=== PATIENT | male | born 1950 | race Caucasian/White ===

== ENCOUNTER 2016-09-10 23:15 | Inpatient (IN) | payer OTHER ==
[~2016-09-10] VITALS: Ht 172.7 cm; Wt 100.0 kg
[2016-09-11] MEDS ORDERED: SODIUM CHLORIDE 0.9% 1,000 ML IV ONE (02:11)
[2016-09-11 02:49] LABS: Urine Bilirubin Negative (Negative); Urine Blood TRACE /uL (Negative); Urine Color Yellow (Yellow); Urine Hyaline Cast FEW /lpf (0 - 2); Urine Ketone Negative (Negative); Urine Nitrite Negative (Negative); Urine RBC 3 /hpf (0 - 3); Urine Squamous Epithelial Cell FEW /hpf (<5); Urine Urobilinogen Normal (Negative)
[2016-09-11 02:50] LABS: Urine Glucose 4+ mg/dL (Normal)
[2016-09-11 03:20] LABS: Basophils # (auto) 0.2 uL; Basophils % (auto) 1.5 % (0.0-2.0); DEFINITIVE VIEW TRANSMISSION; Eosinophils # (auto) 0 uL; Eosinophils % (auto) 0.1 % (0.0-7.0); Hematocrit 50.5 % (41.0-53.0); Hemoglobin 16.6 g/dL (13.5-17.5); Lymphocytes # (auto) 2.7 uL; Mean Corpuscular Hgb Conc. 32.8 g/dL (32.0-36.0); Mean Corpuscular Volume 82.3 fL (80.0-100.0); Mean Platelet Volume 9.3 fL (7.4-10.4); Monocytes # (auto) 0.6 uL; Monocytes % (auto) 4.9 % (0.0-12.0); Neutrophils # (auto) 8.3 uL; Neutrophils % (auto) 70.5 % (37.0-80.0); Platelet Count (auto) 222 10^3/uL (140-450); Red Cell Distribution Width 14.2 % (11.6-16.0); White Blood Cell 11.8 10^3/uL (4.4-10.8)
[2016-09-11 03:35] LABS: INR 1.04 (0.9-1.15); Partial Thromboplastin Time 23.2 sec (22.64-33.71); Prothrombin Time 10.7 sec (9.37-12.3)
[2016-09-11 03:36] LABS: Albumin 1.7 g/dL (3.4-5.0); Anion Gap 10 (5-15); Aspartate Aminotransferase 39 U/L (15-37); BUN/Creatinine Ratio 31.1; Blood Urea Nitrogen 56 mg/dL (7-18); Calcium 10.1 mg/dL (8.5-10.1); Carbon Dioxide 25 mmol/L (21-32); Chloride 103 mmol/L (98-107); GFR African American 49 mL/min; GFR Non-African American 41 mL/min; Glucose 348 mg/dL (74-106); Potassium 4.8 mmol/L (3.5-5.1); Sodium 138 mmol/L (136-145)
[2016-09-11 03:39] LABS: Alkaline Phosphatase 116 U/L (45-117); Bilirubin, Total 0.3 mg/dL (0.2-1.0)
[2016-09-11 04:09] LABS: Temperature: 20.5 C (20.0-25.0)
[2016-09-11] MEDS ORDERED: cloNIDine HCL 0.1 MG TAB PO ONE (08:30)
[2016-09-11] MEDS ORDERED: FUROSEMIDE 20 MG/2 ML VIAL IV ONE (08:30)
[2016-09-11] MEDS ORDERED: NITROGLYCERIN 0.4 MG SL TAB SL PRN (10:15)
[2016-09-11] MEDS ORDERED: LISINOPRIL 10 MG TAB PO ONE (10:15)
[2016-09-11] MEDS ORDERED: HYDROcodone-ACET 5/325MG TAB PO PRN (10:15)
[2016-09-11] MEDS ORDERED: MORPHINE SULF INJ 2 MG/ML SYRINGE 1ML IV PRN ×2 (10:15)
[2016-09-11] MEDS ORDERED: cloNIDine HCL 0.1 MG TAB PO PRN (10:15)
[2016-09-11] MEDS ORDERED: cefTRIAXone 1GM/50ML D5W 50 ML IV ONE (10:15)
[2016-09-11] MEDS ORDERED: ONDANSETRON HCL 4 MG/2 ML VIAL IV PRN (10:15)
[2016-09-11] MEDS ORDERED: ACETAMINOPHEN 325 MG TAB PO PRN (10:15)
[2016-09-11] MEDS: metFORMIN HYDROCHLORIDE 500 MG TAB PO ONE ×2 (10:15→10:42)
[2016-09-11] MEDS ORDERED: DEXTROSE (50%) 50ML SYRG IV PRN (10:15)
[2016-09-11] MEDS ORDERED: TEMAZEPAM 15 MG CAP PO PRN (10:15)
[2016-09-11] MEDS ORDERED: FAMOTIDINE 20 MG TAB PO ONE (10:30)
[2016-09-11] MEDS ORDERED: MULTIPLE VITAMIN TAB PO ONE (10:30)
[2016-09-11] MEDS: SODIUM CHLORIDE 0.9% 1,000 ML IV SCH ×2 (10:34→12:06)
[2016-09-11 10:45] LABS: Amylase 42 U/L (25-115)
[2016-09-11] MEDS ORDERED: ASPirin-EC 81 mg tab PO ONE (10:45)
[2016-09-11] MEDS: Boost Glucose Control 8 Ounces PO SCH ×3 (12:06→22:00)
[2016-09-11] MEDS: InsuLIN REG 1unit/0.01ml Soln (100units/ml) SC SCH ×3 (12:14→22:00)
[2016-09-11] MEDS: ACCU-CHEK COMFORT CURVE STRIP VI SCH ×3 (12:14→22:00)
[2016-09-11] MEDS: metFORMIN HYDROCHLORIDE 500 MG TAB PO SCH (18:15)
[2016-09-11] MEDS: ATORVASTATIN 20 MG TAB PO SCH (22:00)
[2016-09-11] MEDS ORDERED: FAMOTIDINE 20 MG TAB PO SCH (22:00)
[2016-09-11] MEDS: ENOXAPARIN SOD 100 MG/1 ML SYRINGE SC SCH (22:00)
[2016-09-12] MEDS: SODIUM CHLORIDE 0.9% 1,000 ML IV SCH ×2 (02:54→11:21)
[2016-09-12 03:54] LABS: Basophils # (auto) 0.1 uL; Basophils % (auto) 0.7 % (0.0-2.0); Eosinophils # (auto) 0.2 uL; Eosinophils % (auto) 1.7 % (0.0-7.0); Hematocrit 45.1 % (41.0-53.0); Hemoglobin 14.6 g/dL (13.5-17.5); Lymphocytes # (auto) 3.2 uL; Lymphocytes % (auto) 29.7 % (10.0-50.0); Mean Corpuscular Hemoglobin 27.1 pg (28.0-32.0); Mean Corpuscular Hgb Conc. 32.3 g/dL (32.0-36.0); Mean Corpuscular Volume 83.8 fL (80.0-100.0); Mean Platelet Volume 9.1 fL (7.4-10.4); Monocytes # (auto) 0.7 uL; Neutrophils # (auto) 6.5 uL; Neutrophils % (auto) 60.9 % (37.0-80.0); Platelet Count (auto) 217 10^3/uL (140-450); Red Cell Distribution Width 14.8 % (11.6-16.0); White Blood Cell 10.7 10^3/uL (4.4-10.8)
[2016-09-12 04:12] LABS: Albumin 1.4 g/dL (3.4-5.0); Calcium 8.8 mg/dL (8.5-10.1); Potassium 3.8 mmol/L (3.5-5.1)
[2016-09-12 04:15] LABS: Bilirubin, Total 0.2 mg/dL (0.2-1.0); Total Protein 5.1 g/dL (6.4-8.2)
[2016-09-12] MEDS: Boost Glucose Control 8 Ounces PO SCH ×4 (06:00→21:56)
[2016-09-12] MEDS: metFORMIN HYDROCHLORIDE 500 MG TAB PO SCH (07:00)
[2016-09-12] MEDS: ACCU-CHEK COMFORT CURVE STRIP VI SCH ×4 (07:40→21:56)
[2016-09-12] MEDS: InsuLIN REG 1unit/0.01ml Soln (100units/ml) SC SCH ×4 (07:55→21:56)
[2016-09-12] MEDS ORDERED: cefTRIAXone 1GM/50ML D5W 50 ML IV SCH (09:00)
[2016-09-12] MEDS ORDERED: LISINOPRIL 10 MG TAB PO SCH (10:00)
[2016-09-12] MEDS: ENOXAPARIN SOD 100 MG/1 ML SYRINGE SC SCH (10:26)
[2016-09-12] MEDS: ASPirin-EC 81 mg tab PO SCH (10:27)
[2016-09-12] MEDS: FAMOTIDINE 20 MG TAB PO SCH (10:27)
[2016-09-12] MEDS: MULTIPLE VITAMIN TAB PO SCH (10:27)
[2016-09-12] MEDS ORDERED: TRIA75TA55 PO (10:50)
[2016-09-12] MEDS ORDERED: SIMV40TA96 PO (10:50)
[2016-09-12] MEDS ORDERED: METF-489 PO (10:50)
[2016-09-12] MEDS ORDERED: LISI-646 PO (10:50)
[2016-09-12] MEDS: hydrALAZINE HCL 20 MG/ML VL IV PRN ×2 (11:25→17:47)
[2016-09-12 15:09] VITALS: BP 194/107
[2016-09-12 17:27] VITALS: BP 170/90
[2016-09-12 18:33] VITALS: BP 148/89
[2016-09-12] MEDS: ATORVASTATIN 20 MG TAB PO SCH (21:56)
[2016-09-12 22:04] VITALS: BP 102/60
[2016-09-12 22:07] VITALS: BP 152/85
[2016-09-13 04:53] VITALS: BP 136/78
[2016-09-13] MEDS: Boost Glucose Control 8 Ounces PO SCH ×4 (05:29→22:19)
[2016-09-13] MEDS: ACCU-CHEK COMFORT CURVE STRIP VI SCH ×4 (05:57→22:00)
[2016-09-13] MEDS: InsuLIN REG 1unit/0.01ml Soln (100units/ml) SC SCH ×4 (05:59→22:46)
[2016-09-13 08:30] VITALS: BP 145/83
[2016-09-13] MEDS ORDERED: LISINOPRIL 20 MG TAB PO SCH (10:00)
[2016-09-13] MEDS ORDERED: TRIAMTERENE/HCTZ 75/50MG TABLET PO SCH (10:00)
[2016-09-13] MEDS ORDERED: LISINOPRIL 10 MG TAB PO SCH (10:00)
[2016-09-13] MEDS: ENOXAPARIN SOD 40 MG/0.4 ML SYRINGE SC SCH (10:38)
[2016-09-13] MEDS: MULTIPLE VITAMIN TAB PO SCH (10:39)
[2016-09-13] MEDS: ASPirin-EC 81 mg tab PO SCH (10:39)
[2016-09-13] MEDS: FAMOTIDINE 20 MG TAB PO SCH (10:39)
[2016-09-13] MEDS: LISINOPRIL 10 MG TAB PO SCH ×2 (10:40→22:19)
[2016-09-13] MEDS: DOCUSATE SOD 100 MG CAP PO PRN (10:40)
[2016-09-13 13:00] VITALS: BP 171/98
[2016-09-13] MEDS: SODIUM CHLORIDE 0.9% 1,000 ML IV SCH (14:30)
[2016-09-13 16:52] VITALS: BP 169/87
[2016-09-13] MEDS: hydrALAZINE HCL 20 MG/ML VL IV PRN (17:04)
[2016-09-13 21:42] VITALS: BP 136/79
[2016-09-13] MEDS: ATORVASTATIN 20 MG TAB PO SCH (22:18)
[2016-09-14 04:41] VITALS: BP 125/70
[2016-09-14] MEDS: Boost Glucose Control 8 Ounces PO SCH ×4 (05:28→21:19)
[2016-09-14] MEDS: SODIUM CHLORIDE 0.9% 1,000 ML IV SCH (05:30)
[2016-09-14] MEDS: ACCU-CHEK COMFORT CURVE STRIP VI SCH ×4 (06:25→21:46)
[2016-09-14] MEDS: InsuLIN REG 1unit/0.01ml Soln (100units/ml) SC SCH ×4 (06:33→21:39)
[2016-09-14 08:20] LABS: BUN/Creatinine Ratio 29.3; Calcium 8.6 mg/dL (8.5-10.1); Potassium 3.7 mmol/L (3.5-5.1)
[2016-09-14 09:00] VITALS: BP 150/80
[2016-09-14] MEDS: ENOXAPARIN SOD 40 MG/0.4 ML SYRINGE SC SCH (09:36)
[2016-09-14] MEDS: DOCUSATE SOD 100 MG CAP PO PRN (09:36)
[2016-09-14] MEDS: ASPirin-EC 81 mg tab PO SCH (09:36)
[2016-09-14] MEDS: FAMOTIDINE 20 MG TAB PO SCH (09:36)
[2016-09-14] MEDS: MULTIPLE VITAMIN TAB PO SCH (09:37)
[2016-09-14] MEDS: LISINOPRIL 10 MG TAB PO SCH ×2 (09:37→21:46)
[2016-09-14 13:00] VITALS: BP 152/80
[2016-09-14 16:00] VITALS: BP 165/95
[2016-09-14] MEDS: ATORVASTATIN 20 MG TAB PO SCH (21:45)
[2016-09-14 22:00] VITALS: BP 187/99
[2016-09-14] MEDS ORDERED: INSULIN DETEMIR(LEVEMIR) 1unit/0.01ml Soln (100units/ml) SC SCH (22:00)
[2016-09-15 03:06] VITALS: BP 187/99
[2016-09-15] MEDS: hydrALAZINE HCL 20 MG/ML VL IV PRN (04:42)
[2016-09-15] MEDS: Boost Glucose Control 8 Ounces PO SCH ×4 (05:12→22:02)
[2016-09-15 05:45] VITALS: BP 164/88
[2016-09-15] MEDS: ACCU-CHEK COMFORT CURVE STRIP VI SCH ×4 (06:00→22:02)
[2016-09-15] MEDS: InsuLIN REG 1unit/0.01ml Soln (100units/ml) SC SCH ×4 (06:41→22:30)
[2016-09-15 07:33] LABS: BUN/Creatinine Ratio 30.2; Calcium 8.4 mg/dL (8.5-10.1); Magnesium 2.5 mg/dL (1.6-2.6); Potassium 3.8 mmol/L (3.5-5.1)
[2016-09-15] MEDS: FAMOTIDINE 20 MG TAB PO SCH (09:20)
[2016-09-15] MEDS: MULTIPLE VITAMIN TAB PO SCH (09:20)
[2016-09-15] MEDS: ENOXAPARIN SOD 40 MG/0.4 ML SYRINGE SC SCH (09:20)
[2016-09-15] MEDS: LISINOPRIL 10 MG TAB PO SCH ×2 (09:21→21:37)
[2016-09-15] MEDS: ASPirin-EC 81 mg tab PO SCH (09:21)
[2016-09-15 09:31] VITALS: BP 158/92
[2016-09-15] MEDS ORDERED: HCTZ 25 MG TAB PO ONE (11:00)
[2016-09-15] MEDS ORDERED: NICOTINE 21MG/24 HR TOPICAL PATCH TD ONE (11:15)
[2016-09-15 13:00] VITALS: BP 142/80
[2016-09-15 16:45] VITALS: BP 169/85
[2016-09-15] MEDS: ATORVASTATIN 20 MG TAB PO SCH (21:37)
[2016-09-15 22:00] VITALS: BP 164/87
[2016-09-15] MEDS: INSULIN DETEMIR(LEVEMIR) 1unit/0.01ml Soln (100units/ml) SC SCH (22:30)
[2016-09-16 05:00] VITALS: BP 143/98
[2016-09-16] MEDS: Boost Glucose Control 8 Ounces PO SCH ×4 (05:38→22:04)
[2016-09-16] MEDS: ACCU-CHEK COMFORT CURVE STRIP VI SCH ×3 (06:23→22:17)
[2016-09-16 06:41] LABS: BUN/Creatinine Ratio 29.8; Calcium 8.2 mg/dL (8.5-10.1); Potassium 3.5 mmol/L (3.5-5.1)
[2016-09-16] MEDS: InsuLIN REG 1unit/0.01ml Soln (100units/ml) SC SCH ×3 (07:00→22:17)
[2016-09-16 08:40] VITALS: BP 164/94
[2016-09-16] MEDS: ASPirin-EC 81 mg tab PO SCH (09:27)
[2016-09-16] MEDS: NICOTINE 21MG/24 HR TOPICAL PATCH TD SCH (09:27)
[2016-09-16] MEDS: ENOXAPARIN SOD 40 MG/0.4 ML SYRINGE SC SCH (09:27)
[2016-09-16] MEDS: FAMOTIDINE 20 MG TAB PO SCH (09:27)
[2016-09-16] MEDS: MULTIPLE VITAMIN TAB PO SCH (09:28)
[2016-09-16] MEDS: HCTZ 25 MG TAB PO SCH (09:28)
[2016-09-16] MEDS: LISINOPRIL 10 MG TAB PO SCH ×2 (09:29→22:03)
[2016-09-16] MEDS ORDERED: ASP81EC PO (11:54)
[2016-09-16] MEDS ORDERED: LISI10TA6 PO (11:54)
[2016-09-16] MEDS ORDERED: ATOR20TA50 PO (11:54)
[2016-09-16] MEDS ORDERED: LEVEMIR SC (11:54)
[2016-09-16] MEDS ORDERED: MET25T PO (11:54)
[2016-09-16] MEDS ORDERED: PANT40TA2 PO (11:54)
[2016-09-16] MEDS ORDERED: HCTZ25T PO (11:54)
[2016-09-16] MEDS ORDERED: DEXTROSE (50%) 50ML SYRG IV PRN (12:00)
[2016-09-16] MEDS ORDERED: METOPROLOL TARTRATE 25 MG TAB PO ONE (12:00)
[2016-09-16 13:00] VITALS: BP 174/95
[2016-09-16 17:26] VITALS: BP 146/86
[2016-09-16 21:13] VITALS: BP 151/88
[2016-09-16] MEDS: ATORVASTATIN 20 MG TAB PO SCH (22:02)
[2016-09-16] MEDS: METOPROLOL TARTRATE 25 MG TAB PO SCH (22:04)
[2016-09-16] MEDS: INSULIN DETEMIR(LEVEMIR) 1unit/0.01ml Soln (100units/ml) SC SCH (22:17)
[2016-09-17] MEDS: hydrALAZINE HCL 20 MG/ML VL IV PRN (04:55)
[2016-09-17 04:57] VITALS: BP 163/92
[2016-09-17] MEDS: Boost Glucose Control 8 Ounces PO SCH ×4 (05:37→21:50)
[2016-09-17] MEDS: ACCU-CHEK COMFORT CURVE STRIP VI SCH ×4 (06:27→21:50)
[2016-09-17] MEDS: InsuLIN REG 1unit/0.01ml Soln (100units/ml) SC SCH ×4 (06:30→22:13)
[2016-09-17] MEDS: DOCUSATE SOD 100 MG CAP PO PRN (06:32)
[2016-09-17 09:00] VITALS: BP 124/71
[2016-09-17] MEDS: NICOTINE 21MG/24 HR TOPICAL PATCH TD SCH (09:33)
[2016-09-17] MEDS: MULTIPLE VITAMIN TAB PO SCH (09:34)
[2016-09-17] MEDS: PANTOPRAZOLE 40 MG TAB PO SCH (09:34)
[2016-09-17] MEDS: ASPirin-EC 81 mg tab PO SCH (09:34)
[2016-09-17] MEDS: HCTZ 25 MG TAB PO SCH (09:34)
[2016-09-17] MEDS: LISINOPRIL 10 MG TAB PO SCH ×2 (09:35→21:49)
[2016-09-17] MEDS: METOPROLOL TARTRATE 25 MG TAB PO SCH ×2 (09:36→21:50)
[2016-09-17] MEDS: ENOXAPARIN SOD 40 MG/0.4 ML SYRINGE SC SCH (09:36)
[2016-09-17] MEDS: ALPRAZolam 0.5 MG TAB PO PRN ×2 (11:32→21:51)
[2016-09-17] MEDS: ACETAMINOPHEN 325 MG TAB PO PRN ×2 (11:32→17:25)
[2016-09-17 12:33] VITALS: BP 151/81
[2016-09-17 17:08] VITALS: BP 121/78
[2016-09-17 21:20] VITALS: BP 150/80
[2016-09-17] MEDS: ATORVASTATIN 20 MG TAB PO SCH (21:48)
[2016-09-17] MEDS: INSULIN DETEMIR(LEVEMIR) 1unit/0.01ml Soln (100units/ml) SC SCH (22:12)
[2016-09-18 05:27] VITALS: BP 127/59
[2016-09-18] MEDS: Boost Glucose Control 8 Ounces PO SCH ×4 (06:43→21:20)
[2016-09-18] MEDS: ACCU-CHEK COMFORT CURVE STRIP VI SCH ×4 (06:43→22:16)
[2016-09-18] MEDS: InsuLIN REG 1unit/0.01ml Soln (100units/ml) SC SCH ×4 (06:51→22:00)
[2016-09-18 07:07] LABS: BUN/Creatinine Ratio 34.2; Calcium 7.7 mg/dL (8.5-10.1); Potassium 3.8 mmol/L (3.5-5.1)
[2016-09-18 07:40] LABS: Basophils # (auto) 0.1 uL; Basophils % (auto) 0.6 % (0.0-2.0); Eosinophils # (auto) 0.2 uL; Eosinophils % (auto) 2.4 % (0.0-7.0); Hemoglobin 13.3 g/dL (13.5-17.5); Lymphocytes # (auto) 1.4 uL; Lymphocytes % (auto) 16.6 % (10.0-50.0); Mean Corpuscular Hemoglobin 27.7 pg (28.0-32.0); Mean Corpuscular Hgb Conc. 33.3 g/dL (32.0-36.0); Mean Platelet Volume 9.4 fL (7.4-10.4); Monocytes # (auto) 0.8 uL; Monocytes % (auto) 9.5 % (0.0-12.0); Neutrophils # (auto) 5.9 uL; Neutrophils % (auto) 70.9 % (37.0-80.0); Platelet Count (auto) 179 10^3/uL (140-450); Red Cell Distribution Width 14.1 % (11.6-16.0); White Blood Cell 8.3 10^3/uL (4.4-10.8)
[2016-09-18 09:27] VITALS: BP 144/75
[2016-09-18] MEDS: MULTIPLE VITAMIN TAB PO SCH (10:52)
[2016-09-18] MEDS: HCTZ 25 MG TAB PO SCH (10:53)
[2016-09-18] MEDS: ENOXAPARIN SOD 40 MG/0.4 ML SYRINGE SC SCH (10:53)
[2016-09-18] MEDS: ASPirin-EC 81 mg tab PO SCH (10:53)
[2016-09-18] MEDS: LISINOPRIL 10 MG TAB PO SCH ×2 (10:54→21:20)
[2016-09-18] MEDS: METOPROLOL TARTRATE 25 MG TAB PO SCH ×2 (10:54→21:19)
[2016-09-18] MEDS: NICOTINE 21MG/24 HR TOPICAL PATCH TD SCH (10:55)
[2016-09-18] MEDS: PANTOPRAZOLE 40 MG TAB PO SCH (10:55)
[2016-09-18 13:00] VITALS: BP 126/65
[2016-09-18 16:37] VITALS: BP 119/64
[2016-09-18] MEDS: ATORVASTATIN 20 MG TAB PO SCH (21:19)
[2016-09-18 22:00] VITALS: BP 140/77
[2016-09-18] MEDS: INSULIN DETEMIR(LEVEMIR) 1unit/0.01ml Soln (100units/ml) SC SCH (22:16)
[2016-09-18] MEDS: ALPRAZolam 0.5 MG TAB PO PRN (22:19)
[2016-09-19] MEDS: ACETAMINOPHEN 325 MG TAB PO PRN ×2 (00:34→15:18)
[2016-09-19] MEDS: Boost Glucose Control 8 Ounces PO SCH ×4 (04:53→21:46)
[2016-09-19 05:00] VITALS: BP 98/56
[2016-09-19] MEDS: ACCU-CHEK COMFORT CURVE STRIP VI SCH ×4 (06:08→21:46)
[2016-09-19] MEDS: InsuLIN REG 1unit/0.01ml Soln (100units/ml) SC SCH ×4 (06:08→22:02)
[2016-09-19 09:24] VITALS: BP 119/55
[2016-09-19] MEDS: HCTZ 25 MG TAB PO SCH (10:00)
[2016-09-19] MEDS: METOPROLOL TARTRATE 25 MG TAB PO SCH ×2 (10:00→21:45)
[2016-09-19] MEDS: LISINOPRIL 10 MG TAB PO SCH (10:00)
[2016-09-19] MEDS ORDERED: LIDOCAINE VISCOUS 2% 15ML UD ONE (10:39)
[2016-09-19] MEDS ORDERED: fentaNYL CITRATE 100 MCG/2 ML VL ONE (10:39)
[2016-09-19] MEDS ORDERED: MIDAZOLAM HCL 1MG/1ML-2 ML VIAL ONE (10:39)
[2016-09-19] MEDS ORDERED: FLUMAZENIL 0.1 MG/ML INJ 10ML MDV IV ONE (10:39)
[2016-09-19] MEDS ORDERED: NALOXONE HCL 0.4 MG/ML VIAL ONE (10:39)
[2016-09-19] MEDS ORDERED: LIDOCAINE VISCOUS 2% 15ML UD PO ONE (11:00)
[2016-09-19] MEDS ORDERED: fentaNYL CITRATE 100 MCG/2 ML VL IV ONE (11:00)
[2016-09-19] MEDS ORDERED: MIDAZOLAM HCL 5 MG/ML-1ML VIAL IM ONE (11:00)
[2016-09-19] MEDS: ENOXAPARIN SOD 40 MG/0.4 ML SYRINGE SC SCH (12:24)
[2016-09-19] MEDS: PANTOPRAZOLE 40 MG TAB PO SCH (12:24)
[2016-09-19] MEDS: ASPirin-EC 81 mg tab PO SCH (12:24)
[2016-09-19] MEDS: MULTIPLE VITAMIN TAB PO SCH (12:24)
[2016-09-19] MEDS: NICOTINE 21MG/24 HR TOPICAL PATCH TD SCH (12:25)
[2016-09-19 13:10] VITALS: BP 103/57
[2016-09-19] MEDS: ALPRAZolam 0.5 MG TAB PO PRN ×2 (15:18→23:41)
[2016-09-19 17:00] VITALS: BP 116/67
[2016-09-19 21:11] VITALS: BP 127/69
[2016-09-19] MEDS: ATORVASTATIN 20 MG TAB PO SCH (21:46)
[2016-09-19] MEDS: INSULIN DETEMIR(LEVEMIR) 1unit/0.01ml Soln (100units/ml) SC SCH (22:02)
[2016-09-20 05:21] VITALS: BP 120/56
[2016-09-20] MEDS: Boost Glucose Control 8 Ounces PO SCH ×4 (05:38→21:21)
[2016-09-20] MEDS: ACCU-CHEK COMFORT CURVE STRIP VI SCH ×4 (06:31→21:40)
[2016-09-20 06:32] LABS: BUN/Creatinine Ratio 34.5; Potassium 3.8 mmol/L (3.5-5.1)
[2016-09-20] MEDS: InsuLIN REG 1unit/0.01ml Soln (100units/ml) SC SCH ×4 (06:39→22:00)
[2016-09-20 09:00] VITALS: BP_SYST 125; BP_SYST 165; BP_DIAS 67; BP_DIAS 84
[2016-09-20] MEDS: PANTOPRAZOLE 40 MG TAB PO SCH (10:26)
[2016-09-20] MEDS: MULTIPLE VITAMIN TAB PO SCH (10:30)
[2016-09-20] MEDS: LISINOPRIL 10 MG TAB PO SCH (10:30)
[2016-09-20] MEDS: METOPROLOL TARTRATE 25 MG TAB PO SCH ×2 (10:32→21:40)
[2016-09-20] MEDS: HCTZ 25 MG TAB PO SCH (10:33)
[2016-09-20] MEDS: ASPirin-EC 81 mg tab PO SCH (10:33)
[2016-09-20] MEDS: ENOXAPARIN SOD 40 MG/0.4 ML SYRINGE SC SCH (10:34)
[2016-09-20] MEDS: NICOTINE 21MG/24 HR TOPICAL PATCH TD SCH (10:35)
[2016-09-20 13:00] VITALS: BP 125/67
[2016-09-20 16:36] VITALS: BP 123/71
[2016-09-20] MEDS: DOCUSATE SOD 100 MG CAP PO PRN (17:04)
[2016-09-20] MEDS: ATORVASTATIN 20 MG TAB PO SCH (21:39)
[2016-09-20 21:54] VITALS: BP 133/79
[2016-09-20] MEDS: INSULIN DETEMIR(LEVEMIR) 1unit/0.01ml Soln (100units/ml) SC SCH (22:01)
[2016-09-21] MEDS: ALPRAZolam 0.5 MG TAB PO PRN ×2 (03:36→09:33)
[2016-09-21 05:30] VITALS: BP 116/71
[2016-09-21] MEDS: Boost Glucose Control 8 Ounces PO SCH ×4 (05:58→22:00)
[2016-09-21] MEDS: ACCU-CHEK COMFORT CURVE STRIP VI SCH ×4 (06:31→22:00)
[2016-09-21] MEDS: InsuLIN REG 1unit/0.01ml Soln (100units/ml) SC SCH ×4 (06:31→22:00)
[2016-09-21 09:15] VITALS: BP 140/49
[2016-09-21] MEDS: ASPirin-EC 81 mg tab PO SCH (09:31)
[2016-09-21] MEDS: METOPROLOL TARTRATE 25 MG TAB PO SCH ×2 (09:31→22:22)
[2016-09-21] MEDS: PANTOPRAZOLE 40 MG TAB PO SCH (09:32)
[2016-09-21] MEDS: HCTZ 25 MG TAB PO SCH (09:32)
[2016-09-21] MEDS: MULTIPLE VITAMIN TAB PO SCH (09:32)
[2016-09-21] MEDS: LISINOPRIL 10 MG TAB PO SCH (09:33)
[2016-09-21] MEDS: NICOTINE 21MG/24 HR TOPICAL PATCH TD SCH (09:38)
[2016-09-21] MEDS: ENOXAPARIN SOD 40 MG/0.4 ML SYRINGE SC SCH (09:39)
[2016-09-21 13:53] VITALS: BP 129/76
[2016-09-21 16:54] VITALS: BP 109/79
[2016-09-21 22:00] VITALS: BP 138/74
[2016-09-21] MEDS: INSULIN DETEMIR(LEVEMIR) 1unit/0.01ml Soln (100units/ml) SC SCH (22:00)
[2016-09-21] MEDS: DOCUSATE SOD 100 MG CAP PO PRN (22:21)
[2016-09-21] MEDS: ATORVASTATIN 20 MG TAB PO SCH (22:21)
[2016-09-22 05:28] VITALS: BP 133/67
[2016-09-22] MEDS: Boost Glucose Control 8 Ounces PO SCH ×4 (06:00→21:56)
[2016-09-22] MEDS: ACCU-CHEK COMFORT CURVE STRIP VI SCH ×4 (07:00→21:57)
[2016-09-22] MEDS: InsuLIN REG 1unit/0.01ml Soln (100units/ml) SC SCH ×4 (07:00→21:56)
[2016-09-22 09:00] VITALS: BP 158/77
[2016-09-22] MEDS: NICOTINE 21MG/24 HR TOPICAL PATCH TD SCH ×2 (09:58→10:12)
[2016-09-22] MEDS: HCTZ 25 MG TAB PO SCH (10:01)
[2016-09-22] MEDS: METOPROLOL TARTRATE 25 MG TAB PO SCH ×2 (10:01→21:56)
[2016-09-22] MEDS: ASPirin-EC 81 mg tab PO SCH (10:02)
[2016-09-22] MEDS: LISINOPRIL 10 MG TAB PO SCH ×2 (10:02→10:15)
[2016-09-22] MEDS: MULTIPLE VITAMIN TAB PO SCH (10:03)
[2016-09-22] MEDS: ENOXAPARIN SOD 40 MG/0.4 ML SYRINGE SC SCH (10:03)
[2016-09-22] MEDS: PANTOPRAZOLE 40 MG TAB PO SCH (10:03)
[2016-09-22 16:51] VITALS: BP 150/84
[2016-09-22] MEDS: INSULIN DETEMIR(LEVEMIR) 1unit/0.01ml Soln (100units/ml) SC SCH (21:54)
[2016-09-22] MEDS: ATORVASTATIN 20 MG TAB PO SCH (21:54)
[2016-09-22 22:00] VITALS: BP 144/77
[2016-09-23] MEDS: hydrALAZINE HCL 20 MG/ML VL IV PRN (04:29)
[2016-09-23 05:00] VITALS: BP 171/80
[2016-09-23] MEDS: InsuLIN REG 1unit/0.01ml Soln (100units/ml) SC SCH ×4 (05:29→23:12)
[2016-09-23] MEDS: ACCU-CHEK COMFORT CURVE STRIP VI SCH ×4 (05:29→21:57)
[2016-09-23] MEDS: Boost Glucose Control 8 Ounces PO SCH ×4 (05:29→21:43)
[2016-09-23 06:17] LABS: BUN/Creatinine Ratio 44.7; Calcium 7.1 mg/dL (8.5-10.1); Potassium 3.8 mmol/L (3.5-5.1)
[2016-09-23 09:08] VITALS: BP 142/70
[2016-09-23] MEDS: MULTIPLE VITAMIN TAB PO SCH (09:48)
[2016-09-23] MEDS: HCTZ 25 MG TAB PO SCH (09:49)
[2016-09-23] MEDS: ASPirin-EC 81 mg tab PO SCH (09:51)
[2016-09-23] MEDS: PANTOPRAZOLE 40 MG TAB PO SCH (09:51)
[2016-09-23] MEDS: ALPRAZolam 0.5 MG TAB PO PRN (09:51)
[2016-09-23] MEDS: ENOXAPARIN SOD 40 MG/0.4 ML SYRINGE SC SCH (09:53)
[2016-09-23] MEDS: METOPROLOL TARTRATE 25 MG TAB PO SCH (09:53)
[2016-09-23] MEDS: NICOTINE 21MG/24 HR TOPICAL PATCH TD SCH (10:00)
[2016-09-23] MEDS ORDERED: DOCUSATE SOD 100 MG CAP PO PRN (11:30)
[2016-09-23] MEDS ORDERED: METOPROLOL TARTRATE 25 MG TAB PO ONE (11:45)
[2016-09-23 13:00] VITALS: BP 111/66
[2016-09-23 17:08] VITALS: BP 149/78
[2016-09-23] MEDS: METOPROLOL TARTRATE 50 MG TAB PO SCH (21:47)
[2016-09-23] MEDS: ATORVASTATIN 20 MG TAB PO SCH (21:47)
[2016-09-23 22:00] VITALS: BP 129/69
[2016-09-23] MEDS: INSULIN DETEMIR(LEVEMIR) 1unit/0.01ml Soln (100units/ml) SC SCH (23:12)
[2016-09-24] MEDS: Boost Glucose Control 8 Ounces PO SCH ×4 (05:31→21:47)
[2016-09-24 05:46] VITALS: BP 149/61
[2016-09-24] MEDS: InsuLIN REG 1unit/0.01ml Soln (100units/ml) SC SCH ×4 (06:29→22:23)
[2016-09-24] MEDS: ACCU-CHEK COMFORT CURVE STRIP VI SCH ×4 (06:29→22:04)
[2016-09-24 08:34] VITALS: BP 110/67
[2016-09-24] MEDS: MULTIPLE VITAMIN TAB PO SCH (10:39)
[2016-09-24] MEDS: HCTZ 25 MG TAB PO SCH (10:39)
[2016-09-24] MEDS: ASPirin-EC 81 mg tab PO SCH (10:40)
[2016-09-24] MEDS: LISINOPRIL 10 MG TAB PO SCH (10:40)
[2016-09-24] MEDS: METOPROLOL TARTRATE 50 MG TAB PO SCH ×2 (10:40→21:48)
[2016-09-24] MEDS: ENOXAPARIN SOD 40 MG/0.4 ML SYRINGE SC SCH (10:41)
[2016-09-24] MEDS: PANTOPRAZOLE 40 MG TAB PO SCH (10:41)
[2016-09-24] MEDS: NICOTINE 21MG/24 HR TOPICAL PATCH TD SCH (10:43)
[2016-09-24 12:29] VITALS: BP 119/64
[2016-09-24 16:27] VITALS: BP 140/69
[2016-09-24] MEDS: ATORVASTATIN 20 MG TAB PO SCH (21:47)
[2016-09-24 22:00] VITALS: BP 127/61
[2016-09-24] MEDS: INSULIN DETEMIR(LEVEMIR) 1unit/0.01ml Soln (100units/ml) SC SCH (22:23)
[2016-09-25] MEDS: Boost Glucose Control 8 Ounces PO SCH ×4 (05:41→21:48)
[2016-09-25 05:59] VITALS: BP 136/71
[2016-09-25 06:26] LABS: Basophils # (auto) 0 uL; Basophils % (auto) 0.3 % (0.0-2.0); Eosinophils # (auto) 0 uL; Eosinophils % (auto) 0.4 % (0.0-7.0); Hematocrit 37.7 % (41.0-53.0); Hemoglobin 12.2 g/dL (13.5-17.5); Lymphocytes # (auto) 1.8 uL; Lymphocytes % (auto) 19.5 % (10.0-50.0); Mean Corpuscular Hemoglobin 27.2 pg (28.0-32.0); Mean Corpuscular Hgb Conc. 32.3 g/dL (32.0-36.0); Mean Corpuscular Volume 84.2 fL (80.0-100.0); Mean Platelet Volume 8.9 fL (7.4-10.4); Monocytes # (auto) 0.6 uL; Monocytes % (auto) 6.8 % (0.0-12.0); Neutrophils # (auto) 6.9 uL; Platelet Count (auto) 218 10^3/uL (140-450); Red Cell Distribution Width 14.4 % (11.6-16.0); White Blood Cell 9.4 10^3/uL (4.4-10.8)
[2016-09-25] MEDS: InsuLIN REG 1unit/0.01ml Soln (100units/ml) SC SCH ×4 (06:37→23:27)
[2016-09-25] MEDS: ACCU-CHEK COMFORT CURVE STRIP VI SCH ×4 (06:37→21:53)
[2016-09-25 06:42] LABS: INR 1.05 (0.9-1.15); Prothrombin Time 10.8 sec (9.37-12.3)
[2016-09-25 06:57] LABS: BUN/Creatinine Ratio 36.6; Calcium 7.6 mg/dL (8.5-10.1); Potassium 3.8 mmol/L (3.5-5.1)
[2016-09-25 09:17] VITALS: BP 137/67
[2016-09-25] MEDS: ASPirin-EC 81 mg tab PO SCH (10:12)
[2016-09-25] MEDS: HCTZ 25 MG TAB PO SCH (10:12)
[2016-09-25] MEDS: PANTOPRAZOLE 40 MG TAB PO SCH (10:13)
[2016-09-25] MEDS: ENOXAPARIN SOD 40 MG/0.4 ML SYRINGE SC SCH (10:13)
[2016-09-25] MEDS: METOPROLOL TARTRATE 50 MG TAB PO SCH ×2 (10:13→21:49)
[2016-09-25] MEDS: MULTIPLE VITAMIN TAB PO SCH (10:13)
[2016-09-25] MEDS: LISINOPRIL 10 MG TAB PO SCH (10:13)
[2016-09-25] MEDS: NICOTINE 21MG/24 HR TOPICAL PATCH TD SCH (10:14)
[2016-09-25 12:51] VITALS: BP 150/69
[2016-09-25] MEDS: ATORVASTATIN 20 MG TAB PO SCH (21:49)
[2016-09-25] MEDS: ALPRAZolam 0.5 MG TAB PO PRN (21:49)
[2016-09-25 22:00] VITALS: BP 121/60
[2016-09-25] MEDS: INSULIN DETEMIR(LEVEMIR) 1unit/0.01ml Soln (100units/ml) SC SCH (22:33)
[2016-09-26] MEDS: guaiFENesin-DEXTROMETHORPHAN 5ML SYR PO PRN ×3 (00:36→15:10)
[2016-09-26 05:00] VITALS: BP 101/66
[2016-09-26 06:00] LABS: Basophils # (auto) 0 uL; Basophils % (auto) 0.3 % (0.0-2.0); Eosinophils # (auto) 0 uL; Eosinophils % (auto) 0.1 % (0.0-7.0); Hematocrit 36.5 % (41.0-53.0); Hemoglobin 11.8 g/dL (13.5-17.5); Lymphocytes % (auto) 20.6 % (10.0-50.0); Mean Corpuscular Hemoglobin 27.1 pg (28.0-32.0); Mean Corpuscular Hgb Conc. 32.4 g/dL (32.0-36.0); Mean Corpuscular Volume 83.8 fL (80.0-100.0); Mean Platelet Volume 9.1 fL (7.4-10.4); Monocytes % (auto) 10.1 % (0.0-12.0); Neutrophils # (auto) 6.7 uL; Neutrophils % (auto) 68.9 % (37.0-80.0); Platelet Count (auto) 215 10^3/uL (140-450); Red Cell Distribution Width 14.3 % (11.6-16.0); White Blood Cell 9.7 10^3/uL (4.4-10.8)
[2016-09-26] MEDS: Boost Glucose Control 8 Ounces PO SCH (06:00)
[2016-09-26 06:13] LABS: INR 1.12 (0.9-1.15); Prothrombin Time 11.5 sec (9.37-12.3)
[2016-09-26 06:21] LABS: Calcium 7.4 mg/dL (8.5-10.1); Magnesium 3.2 mg/dL (1.6-2.6); Potassium 3.9 mmol/L (3.5-5.1)
[2016-09-26 06:23] LABS: BUN/Creatinine Ratio 36.3
[2016-09-26] MEDS: ACCU-CHEK COMFORT CURVE STRIP VI SCH ×3 (06:33→17:00)
[2016-09-26] MEDS: InsuLIN REG 1unit/0.01ml Soln (100units/ml) SC SCH ×3 (06:33→17:00)
[2016-09-26 09:08] VITALS: BP 115/56
[2016-09-26] MEDS: ENOXAPARIN SOD 40 MG/0.4 ML SYRINGE SC SCH (10:01)
[2016-09-26] MEDS: NICOTINE 21MG/24 HR TOPICAL PATCH TD SCH (10:02)
[2016-09-26] MEDS: HCTZ 25 MG TAB PO SCH (10:02)
[2016-09-26] MEDS: PANTOPRAZOLE 40 MG TAB PO SCH (10:03)
[2016-09-26] MEDS: MULTIPLE VITAMIN TAB PO SCH (10:03)
[2016-09-26] MEDS: METOPROLOL TARTRATE 50 MG TAB PO SCH (10:03)
[2016-09-26] MEDS: ASPirin-EC 81 mg tab PO SCH (10:03)
[2016-09-26] MEDS: LISINOPRIL 10 MG TAB PO SCH (10:03)
[2016-09-26 12:18] VITALS: BP 111/60
[2016-09-26] MEDS ORDERED: ALPRAZolam 0.5 MG TAB PO PRN (12:45)
[2016-09-26] MEDS ORDERED: hydrALAZINE HCL 20 MG/ML VL IV PRN (12:45)
[2016-09-26 17:20] VITALS: BP 138/67
[2016-09-26] MEDS ORDERED: Boost Glucose Control 8 Ounces PO SCH (18:00)
[2016-09-27] MEDS ORDERED: MULTIPLE VITAMIN TAB PO SCH (10:00)
[2016-09-27] MEDS ORDERED: CLOPIDOGREL BISULFATE 75 MG TAB PO SCH (10:00)
[2016-09-27] MEDS ORDERED: ASPirin-EC 81 mg tab PO SCH (10:00)
== END 2016-09-26 18:56 | DRG 64 ==
LOC: ER 23:19 → TELE 23:20 → TELE-E-ADS 09-12 14:38 → TELE-CENTR 09-12 16:28
PROVIDERS: ADMIT Internal Medicine; ATTEND Internal Medicine
PROC: HZ3 Substance Abuse Treatment, Individual Counseling (ICD-10-PCS; 2016-09-13)
PROC: B24BZZ4 Ultrasonography of Heart with Aorta, Transesophageal (ICD-10-PCS; principal; 2016-09-19)
DX: I63.9 Cerebral infarction, unspecified (principal); E43 Unspecified severe protein-calorie malnutrition; I13.0 Hypertensive heart and chronic kidney disease with heart failure and stage 1 through stage 4 chronic kidney disease, or unspecified chronic kidney disease; R65.10 Systemic inflammatory response syndrome (SIRS) of non-infectious origin without acute organ dysfunction; K86.1 Other chronic pancreatitis; G81.91 Hemiplegia, unspecified affecting right dominant side; N39.0 Urinary tract infection, site not specified; R10.9 Unspecified abdominal pain; E11.65 Type 2 diabetes mellitus with hyperglycemia; E78.5 Hyperlipidemia, unspecified; E11.22 Type 2 diabetes mellitus with diabetic chronic kidney disease; E66.01 Morbid (severe) obesity due to excess calories; N18.3 Chronic kidney disease, stage 3 (moderate); I50.9 Heart failure, unspecified; E11.21 Type 2 diabetes mellitus with diabetic nephropathy; E86.0 Dehydration; F17.210 Nicotine dependence, cigarettes, uncomplicated; E11.42 Type 2 diabetes mellitus with diabetic polyneuropathy; G47.30 Sleep apnea, unspecified; F12.10 Cannabis abuse, uncomplicated; F10.10 Alcohol abuse, uncomplicated; Z68.33 Body mass index [BMI] 33.0-33.9, adult; Z79.82 Long term (current) use of aspirin; F15.129 Other stimulant abuse with intoxication, unspecified; Z71.41 Alcohol abuse counseling and surveillance of alcoholic
CPT/HCPCS: 36415; 70450; 70551; 71010; 72125; 74176; 78582; 80048; 80053; 80061; 80320; 81001; 82150; 82962; 83036; 83690; 83735; 83880; 84484; 85025; 85049; 85379; 85610; 85730; 87086; 92610; 93005; 93306; 93312; 93886; 93970; 96361; 96365; 96375; 97110; 97530; G0434; J0696; J1815; J2250; J2405

== ENCOUNTER 2017-02-12 18:28 | Inpatient (IN) | payer OTHER ==
[~2017-02-12] VITALS: Ht 177.8 cm; Wt 87.9 kg
[~2017-02-12 18:28] MED LIST: ASP81EC PO; ATOR20TA50 PO; HCTZ25T PO; HYDR25TA4 PO; LEVEMIR SC; LISI10TA6 PO; MET25T PO; METO25TA5 PO; PANT40TA2 PO
[2017-02-12 19:30] LABS: Basophils # (auto) 0.1 uL; Basophils % (auto) 0.5 % (0.0-2.0); DEFINITIVE VIEW TRANSMISSION; Eosinophils # (auto) 0.2 uL; Eosinophils % (auto) 1.6 % (0.0-7.0); Hematocrit 38.8 % (41.0-53.0); Hemoglobin 12.7 g/dL (13.5-17.5); Lymphocytes # (auto) 5.6 uL; Lymphocytes % (auto) 47.3 % (10.0-50.0); Mean Corpuscular Hemoglobin 28.2 pg (28.0-32.0); Mean Corpuscular Hgb Conc. 32.8 g/dL (32.0-36.0); Mean Corpuscular Volume 85.8 fL (80.0-100.0); Monocytes # (auto) 0.7 uL; Monocytes % (auto) 5.8 % (0.0-12.0); Neutrophils # (auto) 5.3 uL; Neutrophils % (auto) 44.8 % (37.0-80.0); Platelet Count (auto) 293 10^3/uL (140-450); Red Cell Distribution Width 16.8 % (11.6-16.0); White Blood Cell 11.8 10^3/uL (4.4-10.8)
[2017-02-12] MEDS ORDERED: ALBUTEROL SULF 2.5 MG/0.5ML(0.5%) NEB SOLN NEB ONE (19:30)
[2017-02-12] MEDS ORDERED: IPRATROPIUM BROM 0.5 MG/2.5ML INH SOL NEB ONE (19:30)
[2017-02-12 20:05] LABS: Albumin 2.3 g/dL (3.4-5.0); BUN/Creatinine Ratio 34.1; Bilirubin, Total 0.4 mg/dL (0.2-1.0); Calcium 8.5 mg/dL (8.5-10.1); Total Protein 5.7 g/dL (6.4-8.2)
[2017-02-12] MEDS ORDERED: methylPREDNISolone SOD SUCC 125 MG/2 ML VL IV ONE (21:45)
[2017-02-12] MEDS ORDERED: FUROSEMIDE 20 MG/2 ML VIAL IV ONE (21:45)
[2017-02-12 21:59] LABS: Allen Test Yes; Base Excess 2.2 mmol/L (-2.0-2.0); Blood 02Sat 89.8 % (96-100); Blood COHb 0.1 % (0.5-1.5); Blood MetHb 0.3 % (0.0-1.5); HHb 10.2 % (0.0-5.0); MODE NASAL CANNULA; O2Hb 89.4 % (94.0-97.0); PCO2 33.2 mmHg (35.0-45.0); PCO2(T) 33.2 mmHg (35.0-45.0); PO2 59.8 mmHg (80.0-100.0); PO2(T) 59.8 mmHg (80.0-100.0); Sample Type Arterial; pH 7.495 (7.350-7.450)
[2017-02-12 22:42] LABS: B-Type Natriuretic Peptide 706.14 pg/mL (0-100)
[2017-02-12 22:43] LABS: Temperature: 22.2 C (20.0-25.0)
[2017-02-12] MEDS ORDERED: DEXTROSE (50%) 50ML SYRG IV PRN (22:45)
[2017-02-12 22:47] LABS: INR 0.95 (0.9-1.15); Prothrombin Time 10.4 sec (9.37-12.3)
[2017-02-12 23:35] VITALS: BP 141/86
[2017-02-13] VITALS (8 sets, daily range): BP systolic 135–174; BP diastolic 67–85
[2017-02-13] MEDS ORDERED: MULT-228 PO (00:13)
[2017-02-13] MEDS ORDERED: SERT-274 PO (00:13)
[2017-02-13] MEDS ORDERED: ZOLP5TAB5 PO (00:13)
[2017-02-13] MEDS ORDERED: CLOP75TA41 PO (00:13)
[2017-02-13] MEDS ORDERED: SITA100T7 PO (00:13)
[2017-02-13] MEDS ORDERED: METF-370 PO (00:13)
[2017-02-13] MEDS ORDERED: FURO40TA PO (00:13)
[2017-02-13] MEDS ORDERED: POTA10SO11 GT (00:13)
[2017-02-13] MEDS ORDERED: AMLO5TAB2 PO (00:13)
[2017-02-13] MEDS: ACCU-CHEK COMFORT CURVE STRIP VI SCH ×4 (06:26→21:26)
[2017-02-13] MEDS ORDERED: FUROSEMIDE 40 MG/4 ML VIAL ONE (06:33)
[2017-02-13] MEDS ORDERED: InsuLIN REG 1unit/0.01ml Soln (100units/ml) ONE (06:34)
[2017-02-13] MEDS: FUROSEMIDE 40 MG/4 ML VIAL IV SCH ×2 (06:42→17:45)
[2017-02-13] MEDS: InsuLIN REG 1unit/0.01ml Soln (100units/ml) SC SCH ×4 (06:43→21:26)
[2017-02-13] MEDS: IPRATROPIUM BROM 0.5 MG/2.5ML INH SOL NEB SCH ×4 (06:57→18:29)
[2017-02-13] MEDS: ALBUTEROL SULF 2.5 MG/0.5ML(0.5%) NEB SOLN NEB SCH ×4 (06:58→18:29)
[2017-02-13] MEDS: PANTOPRAZOLE 40 MG TAB PO SCH (09:51)
[2017-02-13] MEDS: POTASSIUM CHL 20 Meq TABLET PO SCH ×2 (09:51→21:25)
[2017-02-13] MEDS: ASPirin 81 mg TAB PO SCH (09:52)
[2017-02-13] MEDS: METOLAZONE 5 MG TAB PO SCH (09:53)
[2017-02-13] MEDS ORDERED: LISINOPRIL 5 MG TAB PO SCH (10:00)
[2017-02-13] MEDS ORDERED: METOPROLOL TARTRATE 25 MG TAB PO SCH (10:00)
[2017-02-13] MEDS ORDERED: LISINOPRIL 5 MG TAB PO ONE (12:00)
[2017-02-13] MEDS ORDERED: METOPROLOL TARTRATE 25 MG TAB PO ONE (12:00)
[2017-02-13] MEDS ORDERED: METO25TA62 PO (21:19)
[2017-02-13] MEDS ORDERED: POTA20TA53 PO (21:19)
[2017-02-13] MEDS: ATORVASTATIN 20 MG TAB PO SCH (21:26)
[2017-02-13] MEDS: METOPROLOL TARTRATE 25 MG TAB PO SCH (21:26)
[2017-02-13 22:37] LABS: Urine Bilirubin Negative (Negative); Urine Blood Negative /uL (Negative); Urine Color Yellow (Yellow); Urine Hyaline Cast FEW /lpf (0 - 2); Urine Ketone Negative (Negative); Urine Nitrite Negative (Negative); Urine RBC 2 /hpf (0 - 3); Urine Squamous Epithelial Cell FEW /hpf (<5); Urine Urobilinogen Normal (Negative)
[2017-02-13 22:41] LABS: Urine Glucose 2+ mg/dL (Normal)
[2017-02-14 05:00] VITALS: BP 127/66
[2017-02-14] MEDS: FUROSEMIDE 40 MG/4 ML VIAL IV SCH ×2 (05:57→18:26)
[2017-02-14] MEDS: ACCU-CHEK COMFORT CURVE STRIP VI SCH ×4 (05:57→21:34)
[2017-02-14 05:59] LABS: Basophils # (auto) 0 uL; Basophils % (auto) 0.5 % (0.0-2.0); Eosinophils # (auto) 0.1 uL; Eosinophils % (auto) 1.1 % (0.0-7.0); Hematocrit 32.7 % (41.0-53.0); Hemoglobin 10.8 g/dL (13.5-17.5); Lymphocytes # (auto) 2.7 uL; Lymphocytes % (auto) 29.5 % (10.0-50.0); Mean Corpuscular Hemoglobin 28.5 pg (28.0-32.0); Mean Corpuscular Hgb Conc. 33.1 g/dL (32.0-36.0); Mean Corpuscular Volume 86.3 fL (80.0-100.0); Mean Platelet Volume 8.6 fL (7.4-10.4); Monocytes # (auto) 0.7 uL; Monocytes % (auto) 7.5 % (0.0-12.0); Neutrophils # (auto) 5.5 uL; Neutrophils % (auto) 61.4 % (37.0-80.0); Platelet Count (auto) 249 10^3/uL (140-450); Red Cell Distribution Width 16.6 % (11.6-16.0)
[2017-02-14] MEDS: InsuLIN REG 1unit/0.01ml Soln (100units/ml) SC SCH ×4 (06:21→22:26)
[2017-02-14 06:23] LABS: BUN/Creatinine Ratio 33.1; Calcium 8.1 mg/dL (8.5-10.1); Potassium 4.2 mmol/L (3.5-5.1)
[2017-02-14] MEDS: IPRATROPIUM BROM 0.5 MG/2.5ML INH SOL NEB SCH ×4 (07:09→19:24)
[2017-02-14] MEDS: ALBUTEROL SULF 2.5 MG/0.5ML(0.5%) NEB SOLN NEB SCH ×4 (07:09→19:25)
[2017-02-14 08:00] VITALS: BP 122/70
[2017-02-14 09:00] VITALS: BP 122/70
[2017-02-14] MEDS: POTASSIUM CHL 20 Meq TABLET PO SCH ×2 (10:05→21:32)
[2017-02-14] MEDS: METOLAZONE 5 MG TAB PO SCH (10:07)
[2017-02-14] MEDS: ASPirin 81 mg TAB PO SCH (10:07)
[2017-02-14] MEDS: LISINOPRIL 10 MG TAB PO SCH (10:07)
[2017-02-14] MEDS: METOPROLOL TARTRATE 25 MG TAB PO SCH ×2 (10:08→21:33)
[2017-02-14] MEDS: PANTOPRAZOLE 40 MG TAB PO SCH (10:08)
[2017-02-14 12:43] VITALS: BP 134/80
[2017-02-14] MEDS: ALBUMIN 25% 50 ML IV SCH ×2 (14:00→22:25)
[2017-02-14 17:00] VITALS: BP 149/77
[2017-02-14] MEDS: ATORVASTATIN 20 MG TAB PO SCH (21:33)
[2017-02-14 22:00] VITALS: BP 136/68
[2017-02-15 05:18] VITALS: BP 159/78
[2017-02-15] MEDS: FUROSEMIDE 40 MG/4 ML VIAL IV SCH (05:42)
[2017-02-15] MEDS: ALBUMIN 25% 50 ML IV SCH ×3 (05:42→21:43)
[2017-02-15] MEDS: ACCU-CHEK COMFORT CURVE STRIP VI SCH ×4 (06:37→21:43)
[2017-02-15] MEDS: InsuLIN REG 1unit/0.01ml Soln (100units/ml) SC SCH ×4 (06:37→21:42)
[2017-02-15] MEDS: ALBUTEROL SULF 2.5 MG/0.5ML(0.5%) NEB SOLN NEB SCH ×3 (07:06→19:31)
[2017-02-15] MEDS: IPRATROPIUM BROM 0.5 MG/2.5ML INH SOL NEB SCH ×3 (07:06→19:31)
[2017-02-15 08:09] LABS: Albumin 2.3 g/dL (3.4-5.0); BUN/Creatinine Ratio 35.8; Bilirubin, Total 0.3 mg/dL (0.2-1.0); Calcium 8.2 mg/dL (8.5-10.1); Potassium 4.3 mmol/L (3.5-5.1); Total Protein 5.2 g/dL (6.4-8.2)
[2017-02-15 08:51] VITALS: BP 141/75
[2017-02-15] MEDS: POTASSIUM CHL 20 Meq TABLET PO SCH (09:26)
[2017-02-15] MEDS: ASPirin 81 mg TAB PO SCH (09:27)
[2017-02-15] MEDS: PANTOPRAZOLE 40 MG TAB PO SCH (09:27)
[2017-02-15] MEDS: METOPROLOL TARTRATE 25 MG TAB PO SCH ×2 (09:27→21:43)
[2017-02-15] MEDS: METOLAZONE 5 MG TAB PO SCH (09:28)
[2017-02-15] MEDS: LISINOPRIL 10 MG TAB PO SCH (09:29)
[2017-02-15 13:00] VITALS: BP 131/78
[2017-02-15] MEDS ORDERED: DOCUSATE SOD 100 MG CAP PO ONE (15:00)
[2017-02-15] MEDS ORDERED: LACTULOSE 20Gm/30ML SOLN PO ONE (15:00)
[2017-02-15 16:56] VITALS: BP 159/76
[2017-02-15] MEDS: ATORVASTATIN 20 MG TAB PO SCH (21:43)
[2017-02-15 21:55] VITALS: BP 159/83
[2017-02-15 22:40] VITALS: BP 159/76
[2017-02-16 04:44] VITALS: BP 140/70
[2017-02-16] MEDS: InsuLIN REG 1unit/0.01ml Soln (100units/ml) SC SCH ×4 (05:58→21:42)
[2017-02-16] MEDS: ACCU-CHEK COMFORT CURVE STRIP VI SCH ×4 (05:59→21:43)
[2017-02-16] MEDS: ALBUMIN 25% 50 ML IV SCH ×3 (05:59→21:44)
[2017-02-16] MEDS: ALBUTEROL SULF 2.5 MG/0.5ML(0.5%) NEB SOLN NEB SCH ×3 (06:40→19:40)
[2017-02-16] MEDS: IPRATROPIUM BROM 0.5 MG/2.5ML INH SOL NEB SCH ×3 (06:40→19:40)
[2017-02-16 08:30] LABS: BUN/Creatinine Ratio 42.1; Calcium 8.5 mg/dL (8.5-10.1); Potassium 3.9 mmol/L (3.5-5.1)
[2017-02-16 08:48] LABS: Allen Test Yes; Base Excess 4.7 mmol/L (-2.0-2.0); Blood 02Sat 84.9 % (96-100); Blood COHb 0.7 % (0.5-1.5); Blood MetHb 0.2 % (0.0-1.5); HCO3 29.1 mmol/L (22-26.0); MODE ROOM AIR; O2Hb 84.1 % (94.0-97.0); PCO2 42.3 mmHg (35.0-45.0); PCO2(T) 42.3 mmHg (35.0-45.0); PO2 49.5 mmHg (80.0-100.0); PO2(T) 49.5 mmHg (80.0-100.0); Sample Type Arterial; pH 7.455 (7.350-7.450)
[2017-02-16 08:56] VITALS: BP 148/78
[2017-02-16] MEDS: ASPirin 81 mg TAB PO SCH (12:02)
[2017-02-16] MEDS: METOPROLOL TARTRATE 25 MG TAB PO SCH ×2 (12:03→21:43)
[2017-02-16] MEDS: LISINOPRIL 10 MG TAB PO SCH (12:03)
[2017-02-16] MEDS: PANTOPRAZOLE 40 MG TAB PO SCH (12:03)
[2017-02-16 12:30] VITALS: BP 151/84
[2017-02-16 17:00] VITALS: BP 112/58
[2017-02-16 21:39] VITALS: BP 156/70
[2017-02-16] MEDS: ATORVASTATIN 20 MG TAB PO SCH (21:43)
[2017-02-17 04:59] VITALS: BP 135/67
[2017-02-17] MEDS: ALBUMIN 25% 50 ML IV SCH ×2 (05:36→14:00)
[2017-02-17] MEDS: InsuLIN REG 1unit/0.01ml Soln (100units/ml) SC SCH ×2 (05:36→11:33)
[2017-02-17] MEDS: ACCU-CHEK COMFORT CURVE STRIP VI SCH ×2 (05:36→11:33)
[2017-02-17] MEDS: IPRATROPIUM BROM 0.5 MG/2.5ML INH SOL NEB SCH ×2 (07:30→12:00)
[2017-02-17] MEDS: ALBUTEROL SULF 2.5 MG/0.5ML(0.5%) NEB SOLN NEB SCH ×2 (07:30→12:00)
[2017-02-17 09:00] VITALS: BP 125/69
[2017-02-17] MEDS: ASPirin 81 mg TAB PO SCH (09:38)
[2017-02-17] MEDS: METOPROLOL TARTRATE 25 MG TAB PO SCH (09:39)
[2017-02-17] MEDS: PANTOPRAZOLE 40 MG TAB PO SCH (09:39)
[2017-02-17] MEDS: LISINOPRIL 10 MG TAB PO SCH (09:39)
[2017-02-17] MEDS ORDERED: traMADol HCL 50 MG TAB PO PRN (11:00)
[2017-02-17 13:00] VITALS: BP 115/65
[2017-02-17 18:46] VITALS: BP 125/69
[2017-02-26] MEDS ORDERED: CEPH500T PO (16:46)
[2017-02-26] MEDS ORDERED: LEVO25TA6 PO (16:46)
[2017-02-26] MEDS ORDERED: METO25TA5 PO (16:46)
[2017-02-26] MEDS ORDERED: HYDR1TAB97 PO (16:46)
[2017-02-26] MEDS ORDERED: ACE3T PO (16:46)
[2017-02-26] MEDS ORDERED: LOSA50TA6 PO (16:46)
== END 2017-02-17 19:08 | disposition home or self-care (01) | DRG 291 ==
LOC: EDBD 18:28 → ER 18:31 → WEST WING 18:33 → ER 23:31 → WEST WING 23:32
PROVIDERS: ADMIT Internal Medicine; ATTEND Internal Medicine
DX: I50.33 Acute on chronic diastolic (congestive) heart failure (principal); J96.00 Acute respiratory failure, unspecified whether with hypoxia or hypercapnia; I13.0 Hypertensive heart and chronic kidney disease with heart failure and stage 1 through stage 4 chronic kidney disease, or unspecified chronic kidney disease; E44.0 Moderate protein-calorie malnutrition; I69.351 Hemiplegia and hemiparesis following cerebral infarction affecting right dominant side; E11.21 Type 2 diabetes mellitus with diabetic nephropathy; N18.3 Chronic kidney disease, stage 3 (moderate); E78.5 Hyperlipidemia, unspecified; K80.20 Calculus of gallbladder without cholecystitis without obstruction; K21.9 Gastro-esophageal reflux disease without esophagitis; E11.22 Type 2 diabetes mellitus with diabetic chronic kidney disease; Z53.29 Procedure and treatment not carried out because of patient's decision for other reasons; F17.210 Nicotine dependence, cigarettes, uncomplicated; Z80.8 Family history of malignant neoplasm of other organs or systems; Z68.27 Body mass index [BMI] 27.0-27.9, adult
CPT/HCPCS: 36415; 36600; 71010; 80048; 80053; 81001; 82805; 82962; 83880; 84443; 84484; 85025; 85379; 85610; 85730; 93005; 94640; 96374; 96375; 97110; 97163; 97530; J1815

== ENCOUNTER 2017-05-02 12:00 | Inpatient (IN) | payer OTHER ==
[~2017-05-02] VITALS: Ht 172.7 cm; Wt 79.3 kg
[~2017-05-02 12:00] MED LIST changes: +ACE3T PO; +AMLO5TAB2 PO; +CLOP75TA41 PO; +FURO40TA PO; -HCTZ25T PO; +HYDR1TAB97 PO; -HYDR25TA4 PO; +LEVO25TA6 PO; -LISI10TA6 PO; +LOSA50TA6 PO; -MET25T PO; +METF-370 PO; +MULT-228 PO; +POTA20TA53 PO; +SERT-274 PO; +SITA100T7 PO; +ZOLP5TAB5 PO
[2017-05-02] MEDS ORDERED: FUROSEMIDE 40 MG/4 ML VIAL IV ONE (12:45)
[2017-05-02 13:17] LABS: Basophils # (auto) 0 uL; Basophils % (auto) 0.6 % (0.0-2.0); CONDITION Y; Eosinophils # (auto) 0.1 uL; Eosinophils % (auto) 1.9 % (0.0-7.0); Hematocrit 32.6 % (41.0-53.0); Hemoglobin 10.9 g/dL (13.5-17.5); Lymphocytes # (auto) 2.5 uL; Lymphocytes % (auto) 32.5 % (10.0-50.0); Mean Corpuscular Hemoglobin 28.7 pg (28.0-32.0); Mean Corpuscular Hgb Conc. 33.5 g/dL (32.0-36.0); Mean Corpuscular Volume 85.8 fL (80.0-100.0); Monocytes # (auto) 0.4 uL; Monocytes % (auto) 5.7 % (0.0-12.0); Neutrophils # (auto) 4.5 uL; Neutrophils % (auto) 59.3 % (37.0-80.0); Platelet Count (auto) 268 10^3/uL (140-450); Red Cell Distribution Width 16.1 % (11.6-16.0); White Blood Cell 7.6 10^3/uL (4.4-10.8)
[2017-05-02 13:27] LABS: INR 0.95 (0.9-1.15); Partial Thromboplastin Time 26.8 sec (22.64-33.71); Prothrombin Time 10.3 sec (9.37-12.3)
[2017-05-02 13:39] LABS: B-Type Natriuretic Peptide 187.96 pg/mL (0-100)
[2017-05-02 13:40] LABS: Albumin 1.7 g/dL (3.4-5.0); Alkaline Phosphatase 97 U/L (45-117); Anion Gap 10 (5-15); Aspartate Aminotransferase 21 U/L (15-37); BUN/Creatinine Ratio 27.8; Bilirubin, Total 0.2 mg/dL (0.2-1.0); Blood Urea Nitrogen 37 mg/dL (7-18); Calcium 8.2 mg/dL (8.5-10.1); Carbon Dioxide 21 mmol/L (21-32); Chloride 112 mmol/L (98-107); GFR African American 70 mL/min; GFR Non-African American 58 mL/min; Glucose 155 mg/dL (74-106); Magnesium 2.4 mg/dL (1.6-2.6); Potassium 4.3 mmol/L (3.5-5.1); Sodium 143 mmol/L (136-145); Total Protein 5.6 g/dL (6.4-8.2)
[2017-05-02 13:41] LABS: Temperature: 23.1 C (20.0-25.0)
[2017-05-02] MEDS ORDERED: ZOLPIDEM TARTRATE 5 MG TAB PO PRN (15:00)
[2017-05-02] MEDS ORDERED: DEXTROSE (50%) 50ML SYRG IV PRN (15:00)
[2017-05-02] MEDS ORDERED: amLODIPine BESYLATE 5 MG TAB PO ONE (15:15)
[2017-05-02] MEDS ORDERED: SERTRALINE HCL 50 MG TAB PO ONE (15:15)
[2017-05-02] MEDS ORDERED: CLOPIDOGREL BISULFATE 75 MG TAB PO ONE (15:15)
[2017-05-02] MEDS ORDERED: ASPirin 81 mg TAB PO ONE (15:15)
[2017-05-02] MEDS: ENOXAPARIN SOD 40 MG/0.4 ML SYRINGE SC SCH (16:15)
[2017-05-02] MEDS: ACCU-CHEK COMFORT CURVE STRIP VI SCH ×2 (16:19→21:56)
[2017-05-02] MEDS: InsuLIN REG 1unit/0.01ml Soln (100units/ml) SC SCH ×2 (16:19→21:55)
[2017-05-02] MEDS: HYDROcodone-ACET 5/325MG TAB PO PRN ×2 (16:25→22:04)
[2017-05-02 17:00] VITALS: BP 154/88
[2017-05-02] MEDS ORDERED: FUROSEMIDE 40 MG/4 ML VIAL IV SCH (18:00)
[2017-05-02 18:57] VITALS: BP 154/88
[2017-05-02] MEDS: ALBUMIN 25% 50 ML IV SCH (21:53)
[2017-05-02] MEDS: METOPROLOL TARTRATE 25 MG TAB PO SCH (21:54)
[2017-05-02] MEDS: ATORVASTATIN 20 MG TAB PO SCH (21:55)
[2017-05-02] MEDS: POTASSIUM CHL 10 Meq TABLET PO SCH (21:55)
[2017-05-02 22:00] VITALS: BP 149/87
[2017-05-03 05:00] VITALS: BP 123/71
[2017-05-03] MEDS ORDERED: LEVOTHYROXINE SODIUM 25 MCG TAB PO SCH (07:00)
[2017-05-03 08:00] VITALS: BP_SYST 138; BP_SYST 145; BP_DIAS 69; BP_DIAS 81
[2017-05-03 08:30] LABS: Calcium 8.4 mg/dL (8.5-10.1); Potassium 4.3 mmol/L (3.5-5.1)
[2017-05-03] MEDS ORDERED: amLODIPine BESYLATE 5 MG TAB PO SCH (10:00)
[2017-05-03] MEDS ORDERED: ENOXAPARIN SOD 30 MG/0.3 ML SYRINGE SC SCH (10:00)
[2017-05-03] MEDS: METOPROLOL TARTRATE 25 MG TAB PO SCH ×2 (10:23→22:00)
[2017-05-03] MEDS: CLOPIDOGREL BISULFATE 75 MG TAB PO SCH (10:25)
[2017-05-03] MEDS: HYDROcodone-ACET 5/325MG TAB PO PRN ×2 (10:25→22:53)
[2017-05-03] MEDS: SERTRALINE HCL 50 MG TAB PO SCH (10:25)
[2017-05-03] MEDS: ENOXAPARIN SOD 40 MG/0.4 ML SYRINGE SC SCH (10:26)
[2017-05-03] MEDS: POTASSIUM CHL 10 Meq TABLET PO SCH ×2 (10:26→22:58)
[2017-05-03] MEDS: ASPirin 81 mg TAB PO SCH (10:26)
[2017-05-03] MEDS: ACCU-CHEK COMFORT CURVE STRIP VI SCH ×3 (11:30→22:00)
[2017-05-03] MEDS: InsuLIN REG 1unit/0.01ml Soln (100units/ml) SC SCH ×3 (11:30→22:54)
[2017-05-03 12:26] VITALS: BP 145/81
[2017-05-03] MEDS: ALBUMIN 25% 50 ML IV SCH ×3 (14:00→22:52)
[2017-05-03] MEDS ORDERED: CHOLECALCIFEROL (VITD3) 1,000 UNIT TAB PO ONE (14:15)
[2017-05-03 17:27] VITALS: BP 144/76
[2017-05-03] MEDS: FUROSEMIDE 40 MG/4 ML VIAL IV SCH (18:00)
[2017-05-03 20:00] VITALS: BP 159/73
[2017-05-03 22:07] VITALS: BP 159/73
[2017-05-03] MEDS: hydrALAZINE HCL 25 MG TAB PO SCH (22:50)
[2017-05-03] MEDS: ATORVASTATIN 20 MG TAB PO SCH (23:09)
[2017-05-04 05:21] VITALS: BP 152/73
[2017-05-04] MEDS: LEVOTHYROXINE SODIUM 25 MCG TAB PO SCH (06:17)
[2017-05-04] MEDS: FUROSEMIDE 40 MG/4 ML VIAL IV SCH (06:17)
[2017-05-04] MEDS: ACCU-CHEK COMFORT CURVE STRIP VI SCH ×4 (06:17→22:23)
[2017-05-04] MEDS: ALBUMIN 25% 50 ML IV SCH (06:18)
[2017-05-04] MEDS: InsuLIN REG 1unit/0.01ml Soln (100units/ml) SC SCH ×4 (06:24→22:23)
[2017-05-04 07:01] LABS: BUN/Creatinine Ratio 31.3; Calcium 8.3 mg/dL (8.5-10.1); Potassium 4.3 mmol/L (3.5-5.1)
[2017-05-04 08:00] VITALS: BP 149/75
[2017-05-04 09:00] VITALS: BP 149/75
[2017-05-04] MEDS: CHOLECALCIFEROL (VITD3) 1,000 UNIT TAB PO SCH (10:00)
[2017-05-04] MEDS: SERTRALINE HCL 50 MG TAB PO SCH (10:19)
[2017-05-04] MEDS: POTASSIUM CHL 10 Meq TABLET PO SCH ×2 (10:20→22:22)
[2017-05-04] MEDS: CLOPIDOGREL BISULFATE 75 MG TAB PO SCH (10:20)
[2017-05-04] MEDS: ISOSORBIDE MONONITRATE 20 MG TAB PO SCH ×2 (10:20→22:22)
[2017-05-04] MEDS: ASPirin 81 mg TAB PO SCH (10:20)
[2017-05-04] MEDS: ENOXAPARIN SOD 40 MG/0.4 ML SYRINGE SC SCH (10:21)
[2017-05-04] MEDS: METOPROLOL TARTRATE 25 MG TAB PO SCH ×2 (10:21→22:00)
[2017-05-04] MEDS: hydrALAZINE HCL 25 MG TAB PO SCH ×2 (10:27→22:22)
[2017-05-04 11:44] LABS: Urine RBC None Seen /hpf (0 - 3)
[2017-05-04] MEDS: FUROSEMIDE INJECTION 250 MG in SODIUM CHL 0.9% 225 ML IV SCH (12:15)
[2017-05-04 12:37] LABS: Urine Bilirubin Negative (Negative); Urine Blood Negative /uL (Negative); Urine Color Colorless (Yellow); Urine Glucose Normal (Normal); Urine Hyaline Cast FEW /lpf (0 - 2); Urine Ketone Negative (Negative); Urine Nitrite Negative (Negative); Urine Urobilinogen Normal (Negative); Urine pH 5.5 (5.0-8.0)
[2017-05-04 13:34] VITALS: BP 149/58
[2017-05-04] MEDS: ALBUMIN 25% 100 ML IV SCH ×2 (14:00→22:08)
[2017-05-04 17:14] VITALS: BP 120/58
[2017-05-04] MEDS: HYDROcodone-ACET 5/325MG TAB PO PRN (20:06)
[2017-05-04] MEDS: ATORVASTATIN 20 MG TAB PO SCH (22:23)
[2017-05-04 22:27] VITALS: BP 143/67
[2017-05-05] MEDS: HYDROcodone-ACET 5/325MG TAB PO PRN ×3 (01:25→19:49)
[2017-05-05 05:23] VITALS: BP 142/69
[2017-05-05] MEDS: ALBUMIN 25% 100 ML IV SCH (05:58)
[2017-05-05] MEDS: ACCU-CHEK COMFORT CURVE STRIP VI SCH ×4 (06:02→22:00)
[2017-05-05] MEDS: InsuLIN REG 1unit/0.01ml Soln (100units/ml) SC SCH ×4 (06:02→22:00)
[2017-05-05 06:21] LABS: Basophils # (auto) 0.1 uL; Basophils % (auto) 0.8 % (0.0-2.0); CONDITION Y; DEFINITIVE SEE PRINTOUT; Eosinophils # (auto) 0.2 uL; Eosinophils % (auto) 2.4 % (0.0-7.0); Hematocrit 24.2 % (41.0-53.0); Hemoglobin 8.3 g/dL (13.5-17.5); Lymphocytes # (auto) 2.8 uL; Lymphocytes % (auto) 42.7 % (10.0-50.0); Mean Corpuscular Hemoglobin 29.2 pg (28.0-32.0); Mean Corpuscular Hgb Conc. 34.1 g/dL (32.0-36.0); Mean Corpuscular Volume 85.5 fL (80.0-100.0); Mean Platelet Volume 8.2 fL (7.4-10.4); Monocytes # (auto) 0.6 uL; Monocytes % (auto) 8.8 % (0.0-12.0); Neutrophils % (auto) 45.3 % (37.0-80.0); Platelet Count (auto) 181 10^3/uL (140-450); Red Cell Distribution Width 16.2 % (11.6-16.0); White Blood Cell 6.6 10^3/uL (4.4-10.8)
[2017-05-05 06:59] LABS: BUN/Creatinine Ratio 35.1; Phosphorus 4.6 mg/dL (2.5-4.90); Potassium 4.6 mmol/L (3.5-5.1); Uric Acid 4.5 mg/dL (3.5-7.2)
[2017-05-05] MEDS: LEVOTHYROXINE SODIUM 25 MCG TAB PO SCH (07:03)
[2017-05-05 08:00] VITALS: BP 139/67
[2017-05-05 09:23] VITALS: BP 139/62
[2017-05-05] MEDS: ENOXAPARIN SOD 40 MG/0.4 ML SYRINGE SC SCH (09:58)
[2017-05-05] MEDS ORDERED: METOLAZONE 5 MG TAB PO SCH (10:00)
[2017-05-05] MEDS: CLOPIDOGREL BISULFATE 75 MG TAB PO SCH (10:00)
[2017-05-05] MEDS: ASPirin 81 mg TAB PO SCH (10:01)
[2017-05-05] MEDS: ISOSORBIDE MONONITRATE 20 MG TAB PO SCH ×2 (10:01→22:00)
[2017-05-05] MEDS: METOPROLOL TARTRATE 25 MG TAB PO SCH ×2 (10:02→22:00)
[2017-05-05] MEDS: hydrALAZINE HCL 25 MG TAB PO SCH ×2 (10:02→22:00)
[2017-05-05] MEDS: CHOLECALCIFEROL (VITD3) 1,000 UNIT TAB PO SCH (10:02)
[2017-05-05] MEDS: SERTRALINE HCL 50 MG TAB PO SCH (10:03)
[2017-05-05] MEDS: POTASSIUM CHL 10 Meq TABLET PO SCH ×2 (10:03→22:00)
[2017-05-05] MEDS: FUROSEMIDE INJECTION 250 MG in SODIUM CHL 0.9% 225 ML IV SCH (11:15)
[2017-05-05] MEDS ORDERED: FUROSEMIDE INJECTION 250 MG in SODIUM CHL 0.9% 225 ML IV SCH ×4 (12:45)
[2017-05-05 13:09] VITALS: BP 136/64
[2017-05-05] MEDS: ATORVASTATIN 20 MG TAB PO SCH (22:00)
[2017-05-05 22:10] VITALS: BP 128/60
[2017-05-06 05:24] VITALS: BP 138/81
[2017-05-06] MEDS: InsuLIN REG 1unit/0.01ml Soln (100units/ml) SC SCH ×4 (05:38→23:03)
[2017-05-06] MEDS: ACCU-CHEK COMFORT CURVE STRIP VI SCH ×4 (06:17→23:02)
[2017-05-06] MEDS: LEVOTHYROXINE SODIUM 25 MCG TAB PO SCH (06:18)
[2017-05-06 06:53] LABS: Basophils # (auto) 0 uL; Basophils % (auto) 0.7 % (0.0-2.0); CONDITION Y; DEFINITIVE SEE PRINTOUT; Eosinophils # (auto) 0.2 uL; Eosinophils % (auto) 2.3 % (0.0-7.0); Hematocrit 24.5 % (41.0-53.0); Hemoglobin 8.1 g/dL (13.5-17.5); Lymphocytes # (auto) 2.5 uL; Lymphocytes % (auto) 38.1 % (10.0-50.0); Mean Corpuscular Hemoglobin 28.6 pg (28.0-32.0); Mean Corpuscular Volume 86.7 fL (80.0-100.0); Mean Platelet Volume 8.2 fL (7.4-10.4); Monocytes # (auto) 0.5 uL; Monocytes % (auto) 8.3 % (0.0-12.0); Neutrophils # (auto) 3.3 uL; Neutrophils % (auto) 50.6 % (37.0-80.0); Platelet Count (auto) 187 10^3/uL (140-450); Red Cell Distribution Width 16.8 % (11.6-16.0); White Blood Cell 6.5 10^3/uL (4.4-10.8)
[2017-05-06 07:48] LABS: BUN/Creatinine Ratio 39.3; Calcium 8.1 mg/dL (8.5-10.1); Potassium 4.3 mmol/L (3.5-5.1)
[2017-05-06] MEDS: HYDROcodone-ACET 5/325MG TAB PO PRN ×3 (09:00→22:02)
[2017-05-06 09:27] VITALS: BP 136/76
[2017-05-06] MEDS: POTASSIUM CHL 10 Meq TABLET PO SCH ×2 (10:00→22:01)
[2017-05-06] MEDS: ENOXAPARIN SOD 40 MG/0.4 ML SYRINGE SC SCH (10:00)
[2017-05-06] MEDS: ISOSORBIDE MONONITRATE 20 MG TAB PO SCH ×2 (10:00→22:00)
[2017-05-06] MEDS: ASPirin 81 mg TAB PO SCH (10:00)
[2017-05-06] MEDS: METOPROLOL TARTRATE 25 MG TAB PO SCH ×2 (10:00→22:00)
[2017-05-06] MEDS: SERTRALINE HCL 50 MG TAB PO SCH (10:00)
[2017-05-06] MEDS: CHOLECALCIFEROL (VITD3) 1,000 UNIT TAB PO SCH (10:00)
[2017-05-06] MEDS: CLOPIDOGREL BISULFATE 75 MG TAB PO SCH (10:00)
[2017-05-06] MEDS: hydrALAZINE HCL 25 MG TAB PO SCH ×2 (10:00→21:59)
[2017-05-06] MEDS: FUROSEMIDE INJECTION 250 MG in SODIUM CHL 0.9% 225 ML IV SCH (11:17)
[2017-05-06 12:19] VITALS: BP 146/81
[2017-05-06 17:05] VITALS: BP 150/67
[2017-05-06 22:00] VITALS: BP 172/84
[2017-05-06] MEDS: ATORVASTATIN 20 MG TAB PO SCH (22:01)
[2017-05-07 05:34] VITALS: BP 148/92
[2017-05-07 06:30] LABS: Basophils # (auto) 0 uL; Basophils % (auto) 0.5 % (0.0-2.0); CONDITION Y; Eosinophils # (auto) 0.2 uL; Eosinophils % (auto) 3.1 % (0.0-7.0); Hemoglobin 10.5 g/dL (13.5-17.5); Lymphocytes % (auto) 29.4 % (10.0-50.0); Mean Corpuscular Hemoglobin 28.9 pg (28.0-32.0); Mean Corpuscular Hgb Conc. 33.9 g/dL (32.0-36.0); Mean Corpuscular Volume 85.2 fL (80.0-100.0); Mean Platelet Volume 8.3 fL (7.4-10.4); Monocytes # (auto) 0.7 uL; Monocytes % (auto) 9.8 % (0.0-12.0); Neutrophils # (auto) 3.8 uL; Neutrophils % (auto) 57.2 % (37.0-80.0); Platelet Count (auto) 206 10^3/uL (140-450); Red Cell Distribution Width 15.9 % (11.6-16.0); White Blood Cell 6.7 10^3/uL (4.4-10.8)
[2017-05-07] MEDS: HYDROcodone-ACET 5/325MG TAB PO PRN ×3 (06:46→19:00)
[2017-05-07] MEDS: LEVOTHYROXINE SODIUM 25 MCG TAB PO SCH (06:46)
[2017-05-07] MEDS: ACCU-CHEK COMFORT CURVE STRIP VI SCH ×4 (06:46→22:02)
[2017-05-07] MEDS: InsuLIN REG 1unit/0.01ml Soln (100units/ml) SC SCH ×4 (06:46→22:02)
[2017-05-07 06:51] LABS: Potassium 3.9 mmol/L (3.5-5.1)
[2017-05-07 06:58] LABS: Albumin 2.4 g/dL (3.4-5.0); BUN/Creatinine Ratio 36.3; Calcium 8.4 mg/dL (8.5-10.1)
[2017-05-07 07:01] LABS: Bilirubin, Total 0.2 mg/dL (0.2-1.0); Total Protein 5.7 g/dL (6.4-8.2)
[2017-05-07 09:00] VITALS: BP 156/74
[2017-05-07] MEDS: ENOXAPARIN SOD 40 MG/0.4 ML SYRINGE SC SCH (09:51)
[2017-05-07] MEDS: ISOSORBIDE MONONITRATE 20 MG TAB PO SCH ×2 (09:51→22:01)
[2017-05-07] MEDS: hydrALAZINE HCL 25 MG TAB PO SCH ×2 (09:52→22:00)
[2017-05-07] MEDS: METOPROLOL TARTRATE 25 MG TAB PO SCH ×2 (09:52→22:00)
[2017-05-07] MEDS: POTASSIUM CHL 10 Meq TABLET PO SCH ×2 (09:52→22:01)
[2017-05-07] MEDS: CLOPIDOGREL BISULFATE 75 MG TAB PO SCH (09:52)
[2017-05-07] MEDS: SERTRALINE HCL 50 MG TAB PO SCH (09:52)
[2017-05-07] MEDS: ASPirin 81 mg TAB PO SCH (09:52)
[2017-05-07] MEDS: CHOLECALCIFEROL (VITD3) 1,000 UNIT TAB PO SCH (09:53)
[2017-05-07] MEDS: METOLAZONE 5 MG TAB PO SCH (09:53)
[2017-05-07] MEDS: FUROSEMIDE INJECTION 250 MG in SODIUM CHL 0.9% 225 ML IV SCH (11:15)
[2017-05-07 13:00] VITALS: BP 146/59
[2017-05-07 17:44] VITALS: BP 129/65
[2017-05-07] MEDS: ATORVASTATIN 20 MG TAB PO SCH (22:02)
[2017-05-07 22:07] VITALS: BP 123/56
[2017-05-08] MEDS: HYDROcodone-ACET 5/325MG TAB PO PRN ×4 (01:20→20:46)
[2017-05-08 05:25] VITALS: BP 134/65
[2017-05-08] MEDS: InsuLIN REG 1unit/0.01ml Soln (100units/ml) SC SCH ×4 (06:35→21:56)
[2017-05-08] MEDS: LEVOTHYROXINE SODIUM 25 MCG TAB PO SCH (06:35)
[2017-05-08] MEDS: ACCU-CHEK COMFORT CURVE STRIP VI SCH ×4 (06:35→21:56)
[2017-05-08 08:00] VITALS: BP 153/64
[2017-05-08 10:01] LABS: BUN/Creatinine Ratio 29.1; Calcium 8.4 mg/dL (8.5-10.1)
[2017-05-08] MEDS: CLOPIDOGREL BISULFATE 75 MG TAB PO SCH (11:17)
[2017-05-08] MEDS: POTASSIUM CHL 10 Meq TABLET PO SCH ×2 (11:17→21:55)
[2017-05-08] MEDS: ISOSORBIDE MONONITRATE 20 MG TAB PO SCH ×2 (11:17→21:55)
[2017-05-08] MEDS: CHOLECALCIFEROL (VITD3) 1,000 UNIT TAB PO SCH (11:17)
[2017-05-08] MEDS: ASPirin 81 mg TAB PO SCH (11:18)
[2017-05-08] MEDS: hydrALAZINE HCL 25 MG TAB PO SCH ×2 (11:18→21:56)
[2017-05-08] MEDS: METOPROLOL TARTRATE 25 MG TAB PO SCH ×2 (11:19→21:55)
[2017-05-08] MEDS: METOLAZONE 5 MG TAB PO SCH (11:20)
[2017-05-08] MEDS: SERTRALINE HCL 50 MG TAB PO SCH (11:20)
[2017-05-08] MEDS: FUROSEMIDE INJECTION 250 MG in SODIUM CHL 0.9% 225 ML IV SCH (11:20)
[2017-05-08] MEDS: ENOXAPARIN SOD 40 MG/0.4 ML SYRINGE SC SCH (11:20)
[2017-05-08 12:48] VITALS: BP 155/80
[2017-05-08 16:37] VITALS: BP 146/73
[2017-05-08 20:00] VITALS: BP 154/73
[2017-05-08 21:30] VITALS: BP 154/73
[2017-05-08] MEDS: ALBUMIN 25% 100 ML IV SCH (21:54)
[2017-05-08] MEDS: ATORVASTATIN 20 MG TAB PO SCH (21:56)
[2017-05-09] VITALS (7 sets, daily range): BP systolic 141–156; BP diastolic 67–77
[2017-05-09] MEDS: HYDROcodone-ACET 5/325MG TAB PO PRN ×3 (05:26→19:52)
[2017-05-09] MEDS: InsuLIN REG 1unit/0.01ml Soln (100units/ml) SC SCH ×4 (06:46→22:17)
[2017-05-09] MEDS: ACCU-CHEK COMFORT CURVE STRIP VI SCH ×4 (06:46→22:17)
[2017-05-09] MEDS: LEVOTHYROXINE SODIUM 25 MCG TAB PO SCH (06:46)
[2017-05-09 06:49] LABS: Calcium 8.5 mg/dL (8.5-10.1); Potassium 3.8 mmol/L (3.5-5.1)
[2017-05-09 11:08] LABS: Antiproteinase 3 (PR-3) Ab <3.5 U/mL (0.0-3.5)
[2017-05-09] MEDS ORDERED: BUMETANIDE (0.25 MG/ML) INJ 10ML IV ONE (11:45)
[2017-05-09] MEDS: CLOPIDOGREL BISULFATE 75 MG TAB PO SCH (13:10)
[2017-05-09] MEDS: POTASSIUM CHL 10 Meq TABLET PO SCH ×2 (13:10→22:16)
[2017-05-09] MEDS: ASPirin 81 mg TAB PO SCH (13:10)
[2017-05-09] MEDS: SERTRALINE HCL 50 MG TAB PO SCH (13:11)
[2017-05-09] MEDS: ENOXAPARIN SOD 40 MG/0.4 ML SYRINGE SC SCH (13:11)
[2017-05-09] MEDS: METOLAZONE 5 MG TAB PO SCH (13:13)
[2017-05-09] MEDS: CHOLECALCIFEROL (VITD3) 1,000 UNIT TAB PO SCH (13:13)
[2017-05-09] MEDS: METOPROLOL TARTRATE 25 MG TAB PO SCH ×2 (13:14→22:17)
[2017-05-09] MEDS: hydrALAZINE HCL 25 MG TAB PO SCH ×2 (13:14→22:16)
[2017-05-09] MEDS: ISOSORBIDE MONONITRATE 20 MG TAB PO SCH ×2 (13:15→22:16)
[2017-05-09] MEDS: BUMETANIDE INJECTION 25 MG in GIVE UN-DILUTED 0 ML IV SCH (14:58)
[2017-05-09] MEDS: ALBUMIN 25% 100 ML IV SCH ×2 (14:58→22:18)
[2017-05-09] MEDS: SPIRONOLACTONE 25 MG TAB PO SCH (17:30)
[2017-05-09] MEDS: ATORVASTATIN 20 MG TAB PO SCH (22:16)
[2017-05-09] MEDS ORDERED: DOCUSATE SOD 100 MG CAP PO PRN (22:30)
[2017-05-10] VITALS (7 sets, daily range): BP systolic 131–157; BP diastolic 64–72
[2017-05-10] MEDS: HYDROcodone-ACET 5/325MG TAB PO PRN ×3 (02:03→18:55)
[2017-05-10] MEDS: SPIRONOLACTONE 25 MG TAB PO SCH ×2 (06:01→18:00)
[2017-05-10] MEDS: InsuLIN REG 1unit/0.01ml Soln (100units/ml) SC SCH ×4 (06:25→21:05)
[2017-05-10] MEDS: ACCU-CHEK COMFORT CURVE STRIP VI SCH ×4 (06:25→20:55)
[2017-05-10] MEDS: LEVOTHYROXINE SODIUM 25 MCG TAB PO SCH (06:25)
[2017-05-10] MEDS: METOLAZONE 5 MG TAB PO SCH (09:11)
[2017-05-10] MEDS: ISOSORBIDE MONONITRATE 20 MG TAB PO SCH ×2 (09:11→20:53)
[2017-05-10] MEDS: CLOPIDOGREL BISULFATE 75 MG TAB PO SCH (09:11)
[2017-05-10] MEDS: CHOLECALCIFEROL (VITD3) 1,000 UNIT TAB PO SCH (09:11)
[2017-05-10] MEDS: POTASSIUM CHL 10 Meq TABLET PO SCH ×2 (09:12→20:54)
[2017-05-10] MEDS: SERTRALINE HCL 50 MG TAB PO SCH (09:12)
[2017-05-10] MEDS: ASPirin 81 mg TAB PO SCH (09:12)
[2017-05-10] MEDS: ALBUMIN 25% 100 ML IV SCH (09:13)
[2017-05-10] MEDS: hydrALAZINE HCL 25 MG TAB PO SCH ×2 (09:13→20:54)
[2017-05-10] MEDS: ENOXAPARIN SOD 40 MG/0.4 ML SYRINGE SC SCH (09:14)
[2017-05-10 09:46] LABS: BUN/Creatinine Ratio 36.2; Calcium 9.2 mg/dL (8.5-10.1); Potassium 3.7 mmol/L (3.5-5.1)
[2017-05-10] MEDS ORDERED: LACTULOSE 20Gm/30ML SOLN PO ONE (10:00)
[2017-05-10] MEDS: LACTULOSE 20Gm/30ML SOLN PO SCH ×2 (10:00→20:53)
[2017-05-10] MEDS ORDERED: B-COMPLEX W/ C & FOLIC ACID(NEPHROVITE TAB) PO ONE (13:15)
[2017-05-10] MEDS ORDERED: ASCORBIC ACID 500 MG TAB PO ONE (13:15)
[2017-05-10] MEDS: B-COMPLEX W/ C & FOLIC ACID(NEPHROVITE TAB) PO SCH (13:30)
[2017-05-10] MEDS: BUMETANIDE INJECTION 25 MG in GIVE UN-DILUTED 0 ML IV SCH (14:59)
[2017-05-10] MEDS: ASCORBIC ACID 500 MG TAB PO SCH ×2 (15:00→20:54)
[2017-05-10] MEDS: METOPROLOL TARTRATE 25 MG TAB PO SCH ×2 (17:59→20:54)
[2017-05-10] MEDS: ATORVASTATIN 20 MG TAB PO SCH (20:53)
[2017-05-11] MEDS: HYDROcodone-ACET 5/325MG TAB PO PRN ×4 (00:43→19:49)
[2017-05-11] MEDS: ONDANSETRON HCL 4 MG/2 ML VIAL IV PRN (02:09)
[2017-05-11 05:00] VITALS: BP 156/77
[2017-05-11] MEDS: SPIRONOLACTONE 25 MG TAB PO SCH ×2 (05:44→17:44)
[2017-05-11] MEDS: ACCU-CHEK COMFORT CURVE STRIP VI SCH ×4 (05:44→21:33)
[2017-05-11] MEDS: LEVOTHYROXINE SODIUM 25 MCG TAB PO SCH (05:44)
[2017-05-11] MEDS: InsuLIN REG 1unit/0.01ml Soln (100units/ml) SC SCH ×4 (05:53→21:46)
[2017-05-11 07:46] VITALS: BP 141/74
[2017-05-11] MEDS ORDERED: ZOLPIDEM TARTRATE 5 MG TAB PO PRN (10:00)
[2017-05-11] MEDS ORDERED: ENOXAPARIN SOD 40 MG/0.4 ML SYRINGE SC SCH (10:00)
[2017-05-11] MEDS: LACTULOSE 20Gm/30ML SOLN PO SCH ×2 (10:35→21:46)
[2017-05-11] MEDS: SERTRALINE HCL 50 MG TAB PO SCH (10:35)
[2017-05-11] MEDS: ASPirin 81 mg TAB PO SCH (10:35)
[2017-05-11] MEDS: CLOPIDOGREL BISULFATE 75 MG TAB PO SCH (10:36)
[2017-05-11] MEDS: ASCORBIC ACID 500 MG TAB PO SCH ×2 (10:36→21:48)
[2017-05-11] MEDS: METOLAZONE 5 MG TAB PO SCH ×2 (10:36→15:34)
[2017-05-11] MEDS: B-COMPLEX W/ C & FOLIC ACID(NEPHROVITE TAB) PO SCH (10:36)
[2017-05-11] MEDS: POTASSIUM CHL 10 Meq TABLET PO SCH ×2 (10:36→21:48)
[2017-05-11] MEDS: CHOLECALCIFEROL (VITD3) 1,000 UNIT TAB PO SCH (10:36)
[2017-05-11] MEDS: ISOSORBIDE MONONITRATE 20 MG TAB PO SCH ×2 (10:37→21:47)
[2017-05-11] MEDS: hydrALAZINE HCL 25 MG TAB PO SCH ×2 (10:37→21:47)
[2017-05-11] MEDS: METOPROLOL TARTRATE 25 MG TAB PO SCH ×2 (10:37→21:48)
[2017-05-11] MEDS ORDERED: FLEET ENEMA(ADULT) 135 ML PR ONE (10:45)
[2017-05-11 11:58] LABS: Albumin 3.1 g/dL (3.4-5.0); Calcium 9.3 mg/dL (8.5-10.1); Potassium 3.5 mmol/L (3.5-5.1)
[2017-05-11 12:11] VITALS: BP 157/76
[2017-05-11 16:39] VITALS: BP 146/70
[2017-05-11] MEDS: BUMETANIDE INJECTION 25 MG in GIVE UN-DILUTED 0 ML IV SCH (17:45)
[2017-05-11] MEDS: ATORVASTATIN 20 MG TAB PO SCH (21:46)
[2017-05-11 21:57] VITALS: BP 154/83
[2017-05-12] MEDS: HYDROcodone-ACET 5/325MG TAB PO PRN ×3 (05:17→20:17)
[2017-05-12 05:30] VITALS: BP 142/69
[2017-05-12] MEDS: ACCU-CHEK COMFORT CURVE STRIP VI SCH ×4 (06:28→21:59)
[2017-05-12] MEDS: SPIRONOLACTONE 25 MG TAB PO SCH ×2 (06:28→18:24)
[2017-05-12] MEDS: LEVOTHYROXINE SODIUM 25 MCG TAB PO SCH (06:28)
[2017-05-12] MEDS: InsuLIN REG 1unit/0.01ml Soln (100units/ml) SC SCH ×4 (06:29→22:00)
[2017-05-12 06:47] LABS: Calcium 8.7 mg/dL (8.5-10.1); Potassium 3.9 mmol/L (3.5-5.1)
[2017-05-12 06:58] LABS: BUN/Creatinine Ratio 37.5
[2017-05-12 09:00] VITALS: BP 120/59
[2017-05-12] MEDS ORDERED: INSULIN DETEMIR(LEVEMIR) 1unit/0.01ml Soln (100units/ml) SC ONE ×2 (10:15→10:45)
[2017-05-12] MEDS: ENOXAPARIN SOD 30 MG/0.3 ML SYRINGE SC SCH (10:23)
[2017-05-12] MEDS: LACTULOSE 20Gm/30ML SOLN PO SCH ×2 (10:23→21:57)
[2017-05-12] MEDS: hydrALAZINE HCL 25 MG TAB PO SCH ×2 (10:23→21:57)
[2017-05-12] MEDS: POTASSIUM CHL 10 Meq TABLET PO SCH ×2 (10:24→21:58)
[2017-05-12] MEDS: CHOLECALCIFEROL (VITD3) 1,000 UNIT TAB PO SCH (10:24)
[2017-05-12] MEDS: ISOSORBIDE MONONITRATE 20 MG TAB PO SCH ×2 (10:24→21:58)
[2017-05-12] MEDS: ASCORBIC ACID 500 MG TAB PO SCH ×2 (10:24→21:58)
[2017-05-12] MEDS: SERTRALINE HCL 50 MG TAB PO SCH (10:24)
[2017-05-12] MEDS: B-COMPLEX W/ C & FOLIC ACID(NEPHROVITE TAB) PO SCH (10:24)
[2017-05-12] MEDS: ASPirin 81 mg TAB PO SCH (10:24)
[2017-05-12] MEDS: CLOPIDOGREL BISULFATE 75 MG TAB PO SCH (10:24)
[2017-05-12] MEDS: METOPROLOL TARTRATE 25 MG TAB PO SCH ×2 (10:25→21:59)
[2017-05-12] MEDS: METOLAZONE 5 MG TAB PO SCH (10:25)
[2017-05-12] MEDS ORDERED: LACTULOSE 20Gm/30ML SOLN PO ONE (10:45)
[2017-05-12 13:00] VITALS: BP 114/58
[2017-05-12] MEDS: BUMETANIDE INJECTION 25 MG in GIVE UN-DILUTED 0 ML IV SCH (15:52)
[2017-05-12 16:50] VITALS: BP 138/64
[2017-05-12] MEDS: ATORVASTATIN 20 MG TAB PO SCH (21:58)
[2017-05-12 22:00] VITALS: BP 126/60
[2017-05-13] MEDS: HYDROcodone-ACET 5/325MG TAB PO PRN ×4 (05:30→21:56)
[2017-05-13 05:51] VITALS: BP 114/55
[2017-05-13] MEDS: ACCU-CHEK COMFORT CURVE STRIP VI SCH ×4 (06:20→21:56)
[2017-05-13] MEDS: SPIRONOLACTONE 25 MG TAB PO SCH ×2 (06:20→17:45)
[2017-05-13] MEDS: LEVOTHYROXINE SODIUM 25 MCG TAB PO SCH (06:20)
[2017-05-13] MEDS: InsuLIN REG 1unit/0.01ml Soln (100units/ml) SC SCH ×4 (06:21→22:09)
[2017-05-13] MEDS: INSULIN DETEMIR(LEVEMIR) 1unit/0.01ml Soln (100units/ml) SC SCH (06:39)
[2017-05-13 06:59] LABS: BUN/Creatinine Ratio 40.4; Calcium 8.9 mg/dL (8.5-10.1); Potassium 3.7 mmol/L (3.5-5.1)
[2017-05-13] MEDS ORDERED: INSULIN DETEMIR(LEVEMIR) 1unit/0.01ml Soln (100units/ml) SC SCH (07:00)
[2017-05-13 08:14] VITALS: BP 120/64
[2017-05-13] MEDS ORDERED: FLEET ENEMA(ADULT) 135 ML PR ONE (09:00)
[2017-05-13] MEDS: METOPROLOL TARTRATE 25 MG TAB PO SCH ×2 (10:00→21:55)
[2017-05-13] MEDS: ASPirin 81 mg TAB PO SCH (11:14)
[2017-05-13] MEDS: hydrALAZINE HCL 25 MG TAB PO SCH ×2 (11:15→21:54)
[2017-05-13] MEDS: ISOSORBIDE MONONITRATE 20 MG TAB PO SCH ×2 (11:16→21:55)
[2017-05-13] MEDS: POTASSIUM CHL 10 Meq TABLET PO SCH ×2 (11:16→21:55)
[2017-05-13] MEDS: CLOPIDOGREL BISULFATE 75 MG TAB PO SCH (11:17)
[2017-05-13] MEDS: B-COMPLEX W/ C & FOLIC ACID(NEPHROVITE TAB) PO SCH (11:17)
[2017-05-13] MEDS: ENOXAPARIN SOD 30 MG/0.3 ML SYRINGE SC SCH (11:18)
[2017-05-13] MEDS: ASCORBIC ACID 500 MG TAB PO SCH ×2 (11:18→21:56)
[2017-05-13] MEDS: SERTRALINE HCL 50 MG TAB PO SCH (11:18)
[2017-05-13] MEDS: CHOLECALCIFEROL (VITD3) 1,000 UNIT TAB PO SCH (11:18)
[2017-05-13] MEDS: TORSEMIDE 20 MG TAB PO SCH ×2 (11:19→21:54)
[2017-05-13] MEDS: LACTULOSE 20Gm/30ML SOLN PO SCH ×2 (12:00→17:45)
[2017-05-13 12:29] VITALS: BP 129/57
[2017-05-13 16:14] VITALS: BP 105/56
[2017-05-13] MEDS: ATORVASTATIN 20 MG TAB PO SCH (21:55)
[2017-05-13 22:05] VITALS: BP 151/77
[2017-05-14] MEDS: LACTULOSE 20Gm/30ML SOLN PO SCH ×5 (00:25→23:53)
[2017-05-14 05:19] VITALS: BP 132/69
[2017-05-14] MEDS: SPIRONOLACTONE 25 MG TAB PO SCH ×2 (06:31→18:25)
[2017-05-14] MEDS: LEVOTHYROXINE SODIUM 25 MCG TAB PO SCH (06:32)
[2017-05-14] MEDS: ACCU-CHEK COMFORT CURVE STRIP VI SCH ×4 (06:32→22:21)
[2017-05-14] MEDS: INSULIN DETEMIR(LEVEMIR) 1unit/0.01ml Soln (100units/ml) SC SCH (06:38)
[2017-05-14] MEDS: InsuLIN REG 1unit/0.01ml Soln (100units/ml) SC SCH ×4 (06:39→22:21)
[2017-05-14 08:30] VITALS: BP 114/76
[2017-05-14] MEDS: hydrALAZINE HCL 25 MG TAB PO SCH ×2 (10:00→22:18)
[2017-05-14] MEDS: METOPROLOL TARTRATE 25 MG TAB PO SCH ×2 (10:00→22:21)
[2017-05-14] MEDS: HYDROcodone-ACET 5/325MG TAB PO PRN ×3 (10:00→19:30)
[2017-05-14] MEDS: ASPirin 81 mg TAB PO SCH (10:07)
[2017-05-14] MEDS: TORSEMIDE 20 MG TAB PO SCH ×2 (10:07→22:18)
[2017-05-14] MEDS: ISOSORBIDE MONONITRATE 20 MG TAB PO SCH ×2 (10:08→22:19)
[2017-05-14] MEDS: POTASSIUM CHL 10 Meq TABLET PO SCH ×2 (10:08→22:19)
[2017-05-14] MEDS: CLOPIDOGREL BISULFATE 75 MG TAB PO SCH (10:08)
[2017-05-14] MEDS: ASCORBIC ACID 500 MG TAB PO SCH ×2 (10:08→22:21)
[2017-05-14] MEDS: B-COMPLEX W/ C & FOLIC ACID(NEPHROVITE TAB) PO SCH (10:08)
[2017-05-14] MEDS: METOLAZONE 5 MG TAB PO SCH (10:09)
[2017-05-14] MEDS: ENOXAPARIN SOD 30 MG/0.3 ML SYRINGE SC SCH (10:09)
[2017-05-14] MEDS: SERTRALINE HCL 50 MG TAB PO SCH (10:09)
[2017-05-14] MEDS: CHOLECALCIFEROL (VITD3) 1,000 UNIT TAB PO SCH (10:09)
[2017-05-14 12:06] LABS: BUN/Creatinine Ratio 40.5; Calcium 8.9 mg/dL (8.5-10.1); Potassium 3.7 mmol/L (3.5-5.1)
[2017-05-14 12:54] VITALS: BP 115/60
[2017-05-14 16:35] VITALS: BP 116/65
[2017-05-14 22:00] VITALS: BP 130/72
[2017-05-14] MEDS: ATORVASTATIN 20 MG TAB PO SCH (22:19)
[2017-05-15] MEDS: HYDROcodone-ACET 5/325MG TAB PO PRN ×4 (00:05→18:29)
[2017-05-15 05:00] VITALS: BP 117/60
[2017-05-15 05:17] LABS: Basophils # (auto) 0.1 uL; Basophils % (auto) 0.6 % (0.0-2.0); CONDITION Y; Eosinophils # (auto) 0.1 uL; Eosinophils % (auto) 0.9 % (0.0-7.0); Hematocrit 27.5 % (41.0-53.0); Hemoglobin 9.3 g/dL (13.5-17.5); Lymphocytes # (auto) 2.3 uL; Lymphocytes % (auto) 22.8 % (10.0-50.0); Mean Corpuscular Hemoglobin 29.3 pg (28.0-32.0); Mean Corpuscular Hgb Conc. 33.8 g/dL (32.0-36.0); Mean Corpuscular Volume 86.8 fL (80.0-100.0); Mean Platelet Volume 8.6 fL (7.4-10.4); Monocytes % (auto) 9.9 % (0.0-12.0); Neutrophils # (auto) 6.6 uL; Neutrophils % (auto) 65.8 % (37.0-80.0); Platelet Count (auto) 262 10^3/uL (140-450); Red Cell Distribution Width 16.5 % (11.6-16.0)
[2017-05-15 05:45] LABS: BUN/Creatinine Ratio 37.4; Calcium 8.7 mg/dL (8.5-10.1); Potassium 3.6 mmol/L (3.5-5.1)
[2017-05-15] MEDS: InsuLIN REG 1unit/0.01ml Soln (100units/ml) SC SCH ×4 (06:02→21:42)
[2017-05-15] MEDS: ACCU-CHEK COMFORT CURVE STRIP VI SCH ×4 (06:02→21:42)
[2017-05-15] MEDS: LEVOTHYROXINE SODIUM 25 MCG TAB PO SCH (06:12)
[2017-05-15] MEDS: LACTULOSE 20Gm/30ML SOLN PO SCH ×4 (06:12→23:28)
[2017-05-15] MEDS: SPIRONOLACTONE 25 MG TAB PO SCH (06:12)
[2017-05-15] MEDS: INSULIN DETEMIR(LEVEMIR) 1unit/0.01ml Soln (100units/ml) SC SCH (06:12)
[2017-05-15] MEDS: ONDANSETRON HCL 4 MG/2 ML VIAL IV PRN (08:20)
[2017-05-15 09:20] VITALS: BP 130/58
[2017-05-15] MEDS: B-COMPLEX W/ C & FOLIC ACID(NEPHROVITE TAB) PO SCH (10:15)
[2017-05-15] MEDS: hydrALAZINE HCL 25 MG TAB PO SCH ×2 (10:15→22:00)
[2017-05-15] MEDS: ASPirin 81 mg TAB PO SCH (10:17)
[2017-05-15] MEDS: CHOLECALCIFEROL (VITD3) 1,000 UNIT TAB PO SCH (10:17)
[2017-05-15] MEDS: CLOPIDOGREL BISULFATE 75 MG TAB PO SCH (10:17)
[2017-05-15] MEDS: METOLAZONE 5 MG TAB PO SCH (10:18)
[2017-05-15] MEDS: TORSEMIDE 20 MG TAB PO SCH ×2 (10:18→22:07)
[2017-05-15] MEDS: METOPROLOL TARTRATE 25 MG TAB PO SCH ×2 (10:18→21:53)
[2017-05-15] MEDS: SERTRALINE HCL 50 MG TAB PO SCH (10:19)
[2017-05-15] MEDS: ENOXAPARIN SOD 30 MG/0.3 ML SYRINGE SC SCH (10:19)
[2017-05-15] MEDS: POTASSIUM CHL 10 Meq TABLET PO SCH ×2 (10:19→22:08)
[2017-05-15] MEDS: ISOSORBIDE MONONITRATE 20 MG TAB PO SCH ×2 (10:19→21:54)
[2017-05-15] MEDS: ASCORBIC ACID 500 MG TAB PO SCH ×2 (10:20→22:08)
[2017-05-15] MEDS: MORPHINE SULF INJ 2 MG/ML SYRINGE 1ML IV PRN ×3 (10:21→20:15)
[2017-05-15 12:52] VITALS: BP 98/50
[2017-05-15 17:00] VITALS: BP 103/44
[2017-05-15 22:00] VITALS: BP 119/67
[2017-05-15] MEDS ORDERED: ATORVASTATIN 20 MG TAB PO SCH (22:00)
[2017-05-16] MEDS: MORPHINE SULF INJ 2 MG/ML SYRINGE 1ML IV PRN ×4 (00:26→15:05)
[2017-05-16 05:00] VITALS: BP 130/97
[2017-05-16] MEDS: LACTULOSE 20Gm/30ML SOLN PO SCH ×2 (06:00→12:37)
[2017-05-16] MEDS: INSULIN DETEMIR(LEVEMIR) 1unit/0.01ml Soln (100units/ml) SC SCH (06:12)
[2017-05-16] MEDS: ACCU-CHEK COMFORT CURVE STRIP VI SCH ×2 (06:12→11:50)
[2017-05-16] MEDS: LEVOTHYROXINE SODIUM 25 MCG TAB PO SCH (06:13)
[2017-05-16] MEDS: InsuLIN REG 1unit/0.01ml Soln (100units/ml) SC SCH ×2 (06:13→11:30)
[2017-05-16 08:11] LABS: BUN/Creatinine Ratio 38.9; Calcium 9.1 mg/dL (8.5-10.1); Potassium 3.9 mmol/L (3.5-5.1)
[2017-05-16 09:00] VITALS: BP 110/46
[2017-05-16] MEDS ORDERED: METO5TAB56 PO (09:26)
[2017-05-16] MEDS ORDERED: TORS20TA19 PO (09:26)
[2017-05-16] MEDS ORDERED: ISO20T PO (09:26)
[2017-05-16] MEDS ORDERED: HYDR-2651 PO (09:26)
[2017-05-16] MEDS ORDERED: CHOL1000T PO (09:26)
[2017-05-16] MEDS ORDERED: SPIR25TA88 PO (09:26)
[2017-05-16] MEDS: ENOXAPARIN SOD 30 MG/0.3 ML SYRINGE SC SCH (10:00)
[2017-05-16] MEDS: CHOLECALCIFEROL (VITD3) 1,000 UNIT TAB PO SCH (10:00)
[2017-05-16] MEDS: METOPROLOL TARTRATE 25 MG TAB PO SCH (10:00)
[2017-05-16] MEDS: ISOSORBIDE MONONITRATE 20 MG TAB PO SCH (10:00)
[2017-05-16] MEDS ORDERED: SPIRONOLACTONE 25 MG TAB PO SCH (10:00)
[2017-05-16] MEDS: POTASSIUM CHL 10 Meq TABLET PO SCH (11:40)
[2017-05-16] MEDS: B-COMPLEX W/ C & FOLIC ACID(NEPHROVITE TAB) PO SCH (11:41)
[2017-05-16] MEDS: TORSEMIDE 20 MG TAB PO SCH (11:41)
[2017-05-16] MEDS: SERTRALINE HCL 50 MG TAB PO SCH (11:41)
[2017-05-16] MEDS: METOLAZONE 5 MG TAB PO SCH (11:42)
[2017-05-16] MEDS: CLOPIDOGREL BISULFATE 75 MG TAB PO SCH (11:43)
[2017-05-16] MEDS: ASPirin 81 mg TAB PO SCH (11:43)
[2017-05-16] MEDS: ASCORBIC ACID 500 MG TAB PO SCH (11:43)
[2017-05-16] MEDS: hydrALAZINE HCL 25 MG TAB PO SCH (11:43)
[2017-05-16] MEDS ORDERED: ONDANSETRON HCL 4 MG/2 ML VIAL IV PRN (15:30)
[2017-05-16] MEDS ORDERED: DEXTROSE (50%) 50ML SYRG IV PRN (15:30)
[2017-05-16] MEDS ORDERED: InsuLIN REG 1unit/0.01ml Soln (100units/ml) SC SCH (17:00)
[2017-05-16] MEDS ORDERED: ACCU-CHEK COMFORT CURVE STRIP VI SCH (17:00)
[2017-05-16] MEDS ORDERED: ISOSORBIDE MONONITRATE 20 MG TAB PO SCH (22:00)
[2017-05-16] MEDS ORDERED: METOPROLOL TARTRATE 25 MG TAB PO SCH (22:00)
[2017-05-16] MEDS ORDERED: POTASSIUM CHL 10 Meq TABLET PO SCH (22:00)
[2017-05-17] MEDS ORDERED: LEVOTHYROXINE SODIUM 50 MCG TAB PO SCH (07:00)
[2017-05-17] MEDS ORDERED: ASPirin 81 mg TAB PO SCH (10:00)
[2017-05-17] MEDS ORDERED: CLOPIDOGREL BISULFATE 75 MG TAB PO SCH (10:00)
[2017-05-17] MEDS ORDERED: SERTRALINE HCL 50 MG TAB PO SCH (10:00)
[2017-05-17] MEDS ORDERED: CHOLECALCIFEROL (VITD3) 1,000 UNIT TAB PO SCH (10:00)
== END 2017-05-16 18:15 | disposition hospice, home (50) | DRG 698 ==
LOC: EDBD 12:00 → ER 12:00 → OVERFLOW 12:01 → CENTRAL 16:55
PROVIDERS: ADMIT Internal Medicine; ATTEND Internal Medicine
DX: N04.9 Nephrotic syndrome with unspecified morphologic changes (principal); E43 Unspecified severe protein-calorie malnutrition; I50.43 Acute on chronic combined systolic (congestive) and diastolic (congestive) heart failure; J96.10 Chronic respiratory failure, unspecified whether with hypoxia or hypercapnia; I13.0 Hypertensive heart and chronic kidney disease with heart failure and stage 1 through stage 4 chronic kidney disease, or unspecified chronic kidney disease; N18.4 Chronic kidney disease, stage 4 (severe); L89.151 Pressure ulcer of sacral region, stage 1; I69.351 Hemiplegia and hemiparesis following cerebral infarction affecting right dominant side; J98.11 Atelectasis; N17.0 Acute kidney failure with tubular necrosis; E11.40 Type 2 diabetes mellitus with diabetic neuropathy, unspecified; E11.21 Type 2 diabetes mellitus with diabetic nephropathy; E11.22 Type 2 diabetes mellitus with diabetic chronic kidney disease; K80.20 Calculus of gallbladder without cholecystitis without obstruction; D63.8 Anemia in other chronic diseases classified elsewhere; E03.9 Hypothyroidism, unspecified; E55.9 Vitamin D deficiency, unspecified; E66.9 Obesity, unspecified; E78.5 Hyperlipidemia, unspecified; F41.9 Anxiety disorder, unspecified; F17.210 Nicotine dependence, cigarettes, uncomplicated; E11.65 Type 2 diabetes mellitus with hyperglycemia; N28.1 Cyst of kidney, acquired; G89.29 Other chronic pain; I87.2 Venous insufficiency (chronic) (peripheral); J44.9 Chronic obstructive pulmonary disease, unspecified; K59.00 Constipation, unspecified; Z99.3 Dependence on wheelchair; Z68.26 Body mass index [BMI] 26.0-26.9, adult; Z99.81 Dependence on supplemental oxygen; Z79.82 Long term (current) use of aspirin; Z79.4 Long term (current) use of insulin; Z79.02 Long term (current) use of antithrombotics/antiplatelets
CPT/HCPCS: 36415; 71010; 76775; 80048; 80053; 81001; 82040; 82570; 82784; 82962; 83520; 83735; 83880; 84100; 84156; 84300; 84443; 84484; 84550; 85025; 85379; 85610; 85730; 86038; 86160; 86256; 86334; 86335; 86592; 86803; 87340; 93005; 93306; 93970; 93971; 94761; 96374; 97110; 97163; J1815; J2405